=== PATIENT | female | born 1965 | race Two or more races ===

== ENCOUNTER → 2016-11-09 | Outpatient (CLI) | payer OTHER ==
[2015-10-17 11:55] VITALS: BP 138/84
[~2016-11-09] MED LIST: CALC500T27 PO; CHOL500015 PO; IBUP200T43 PO; TRAM50TA PO
[2016-11-09 07:32] LABS: BASO % 1 % (0-3); EOS % 5 % (0-3); HEMATOCRIT 42.5 % (36.0-47.0); HEMOGLOBIN 14.6 g/dL (12.0-15.5); LYMPH # 1.6 x10^3/uL (1.0-4.8); LYMPH % 21 % (24-48); MEAN CORPUSCULAR HEMOGLOBIN 30 pg (25-35); MEAN CORPUSCULAR HGB CONC 34 g/dL (31-37); MEAN CORPUSCULAR VOLUME 89 fL (79-100); MONO % 8 % (0-9); NEUT % 65 % (31-73); PLATELET COUNT 295 x10^3/uL (140-400); RED CELL DISTRIBUTION WIDTH 12.5 % (11.5-14.5); WHITE BLOOD COUNT 7.8 x10^3/uL (4.0-11.0)
[2016-11-09 07:35] LABS: BILIRUBIN,URINE NEGATIVE (NEG); GLUCOSE,URINE NEGATIVE (NEG); NITRITE,URINE NEGATIVE (NEG); PH,URINE 5.5; PROTEIN,URINE NEGATIVE (NEG-TRACE); UROBILINOGEN,URINE 0.2 mg/dL (0.2 mg/dL)
[2016-11-09 07:51] LABS: ALBUMIN 3.5 g/dL (3.4-5.0); ALBUMIN/GLOBULIN RATIO 0.9 (1.0-1.7); CREATININE 0.6 mg/dL (0.6-1.0); GFR 106.3; POTASSIUM 4.2 mmol/L (3.5-5.1); TOTAL BILIRUBIN 0.3 mg/dL (0.2-1.0); TOTAL PROTEIN 7.5 g/dL (6.4-8.2)
[2016-11-09 07:52] LABS: CHOLESTEROL/HDL RATIO 3.3
[2016-11-09 07:58] LABS: BACTERIA,URINE MANY /HPF (0-FEW); RBC,URINE 0 /HPF (0-2); SQUAMOUS EPITHELIAL CELL,UR MANY /LPF
== END | disposition home or self-care (01) ==
LOC: LAB 07:15
PROVIDERS: ATTEND Internal Medicine
DX: Z00.00 Encounter for general adult medical examination without abnormal findings (principal)
CPT/HCPCS: 36415; 80053; 80061; 81001; 83036; 84443; 85027; 87086

== ENCOUNTER → 2017-10-12 | Outpatient (CLI) | payer OTHER ==
[2017-10-12 07:31] LABS: ADD MAN DIFF? NO
[2017-10-12 07:41] LABS: BASO % 1 % (0-3); EOS # 0.3 x10^3/uL (0.0-0.7); EOS % 5 % (0-3); HEMATOCRIT 41.4 % (36.0-47.0); HEMOGLOBIN 14.1 g/dL (12.0-15.5); LYMPH # 1.6 x10^3/uL (1.0-4.8); LYMPH % 24 % (24-48); MEAN CORPUSCULAR HEMOGLOBIN 30 pg (25-35); MEAN CORPUSCULAR HGB CONC 34 g/dL (31-37); MEAN CORPUSCULAR VOLUME 87 fL (79-100); MONO # 0.4 x10^3/uL (0.0-1.1); MONO % 7 % (0-9); NEUT # 4.1 x10^3uL (1.8-7.7); NEUT % 64 % (31-73); PLATELET COUNT 331 x10^3/uL (140-400); RED BLOOD COUNT 4.76 x10^6/uL (3.50-5.40); RED CELL DISTRIBUTION WIDTH 12.5 % (11.5-14.5); WHITE BLOOD COUNT 6.5 x10^3/uL (4.0-11.0)
[2017-10-12 08:05] LABS: ALBUMIN 3.4 g/dL (3.4-5.0); ALBUMIN/GLOBULIN RATIO 0.9 (1.0-1.7); ALK PHOS 79 U/L (46-116); ALT (SGPT) 30 U/L (14-59); ANION GAP 8 (6-14); AST (SGOT) 20 U/L (15-37); BLOOD UREA NITROGEN 11 mg/dL (7-20); BUN/CREATININE RATIO 22 (6-20); CALCIUM 9.2 mg/dL (8.5-10.1); CARBON DIOXIDE 26 mmol/L (21-32); CHLORIDE 106 mmol/L (98-107); CHOLESTEROL 204 mg/dL (0-200); CREATININE 0.5 mg/dL (0.6-1.0); GFR 130.6; GLUCOSE 92 mg/dL (70-99); HDLC 78 mg/dL (40-60); LDLC 103 mg/dL (0-100); NON-HDL CHOLESTEROL 126 mg/dL (0-129); SODIUM 140 mmol/L (136-145); TOTAL BILIRUBIN 0.3 mg/dL (0.2-1.0); TOTAL PROTEIN 7.4 g/dL (6.4-8.2); TRIGLYCERIDES 113 mg/dL (0-150); VLDLC 23 mg/dL (0-40)
[2017-10-12 08:06] LABS: CHOLESTEROL/HDL RATIO 2.6
[2017-10-12 08:14] LABS: THYROID STIM HORMONE (TSH) 1.469 uIU/mL (0.358-3.74)
[2017-10-12 10:51] LABS: BILIRUBIN,URINE NEGATIVE (NEG); CLARITY,URINE CLOUDY; COLOR,URINE YELLOW; GLUCOSE,URINE NEGATIVE (NEG); NITRITE,URINE NEGATIVE (NEG); PH,URINE 7.5; PROTEIN,URINE NEGATIVE (NEG-TRACE); UROBILINOGEN,URINE 0.2 mg/dL (0.2 mg/dL)
[2017-10-12 11:06] LABS: AMORPHOUS SEDIMENT,UR PRESENT /HPF; BACTERIA,URINE FEW /HPF (0-FEW); RBC,URINE 0 /HPF (0-2); SQUAMOUS EPITHELIAL CELL,UR MOD /LPF; WBC,URINE 0 /HPF (0-4)
== END | disposition home or self-care (01) ==
LOC: LAB 07:12
DX: Z00.01 Encounter for general adult medical examination with abnormal findings (principal); E55.9 Vitamin D deficiency, unspecified; R79.89 Other specified abnormal findings of blood chemistry
CPT/HCPCS: 36415; 80053; 80061; 81001; 82306; 83036; 84443; 85025

== ENCOUNTER → 2018-03-15 | Outpatient (CLI) | payer OTHER ==
[2018-03-15] MEDS: IOHEXOL 300 MG/ML 100ML VIAL. IV (07:45)
== END | disposition home or self-care (01) ==
LOC: CT 10:19
DX: K76.89 Other specified diseases of liver (principal); J98.11 Atelectasis; E55.9 Vitamin D deficiency, unspecified; K21.0 Gastro-esophageal reflux disease with esophagitis; Z90.721 Acquired absence of ovaries, unilateral; Z90.710 Acquired absence of both cervix and uterus; Z83.3 Family history of diabetes mellitus; Z88.8 Allergy status to other drugs, medicaments and biological substances
CPT/HCPCS: 74160; Q9967

== ENCOUNTER → 2018-06-26 | Outpatient (CLI) | payer OTHER ==
[2017-11-18 15:00] VITALS: BP 142/83
[~2018-06-26] MED LIST changes: -CALC500T27 PO; +CALC500T30 PO; -CHOL500015 PO; +CHOL500045 PO; +HYDR-2761 PO; -IBUP200T43 PO; +IBUP200T44 PO; +NAPR-683 PO; +TIZA4CAP3 PO
--- NOTE | 2018-08-29 15:38 | RAD ---
DATE: 06/26/2018 EXAM: MAMMO SUSY SCREENING BILATERAL HISTORY: Routine screening COMPARISON: 06/04/2017 This study was interpreted with the benefit of Computerized Aided Detection (CAD). Breast Density: HETERO The breast parenchyma is heterogenously dense, which could reduce sensitivity of mammography. Breast parenchyma level C. FINDINGS: 2-D and 3-D tomosynthesis imaging was performed in CC and MLO projections. A new smooth 17 mm nodule is now identified anteromedially in the left breast at approximately the 9:00 location. It is clearly visualized on left CC tomogram image 28. Slightly more superiorly in the medial left breast there is a 5 mm nodule as best seen on left CC tomosynthesis images #43. This has been present on previous multiple previous studies and is stable to decreased in size suggesting a benign etiology. There is also a tiny 3-4 mm nodule in the posterior aspect of the left breast at the 6:00 location as seen on left CC tomosynthesis is image #11. This has been intermittently visualized on previous mammograms. Fibroglandular opacities in the right breast are unchanged without evidence of a mass. Several benign type calcifications are again noted bilaterally. No suspicious microcalcifications are evident. IMPRESSION: 1. New medial left breast nodule as described above. 2. Two additional smaller left breast nodules were probably present on previous studies, however, they are better demonstrated on today's tomosynthesis imaging. 3. Left breast ultrasound is suggested for further evaluation. BI-RADS CATEGORY: 0 INCOMPLETE: NEEDS ADDITIONAL IMAGING EVALUATION AND/OR PRIOR MAMMOGRAMS FOR COMPARISON. RECOMMENDED FOLLOW-UP: ADD ADDITIONAL IMAGING PQRS compliance statement: Patient information was entered into a reminder system with a target due date for the next mammogram. Mammography is a sensitive method for finding small breast cancers, but it does not detect them all and is not a substitute for careful clinical examination. A negative mammogram does not negate a clinically suspicious finding and should not result in delay in biopsying a clinically suspicious abnormality. "Our facility is accredited by the [employer] Mammography Program."
== END | disposition home or self-care (01) ==
LOC: MAMMO 09:57
PROVIDERS: ATTEND Internal Medicine
DX: Z12.31 Encounter for screening mammogram for malignant neoplasm of breast (principal); N63.24 Unspecified lump in the left breast, lower inner quadrant
CPT/HCPCS: 77063; 77067

== ENCOUNTER → 2018-07-05 | Outpatient (CLI) | payer OTHER ==
[2017-11-18 15:00] VITALS: BP 142/83
--- NOTE | 2018-07-05 13:24 | RAD ---
Left breast ultrasound, 07/05/2018: History: Abnormal mammograms A targeted ultrasound exam of left breast was performed. At the 9:00 location approximately 3 cm from the nipple there is a 15 mm rounded nodule. This is a solid nodule with internal color flow. Its margins are slightly lobulated. There is mild posterior acoustic enhancement. This corresponds in location to the dominant nodule seen on the mammograms. While this may be a fibroadenoma, a circumscribed malignancy cannot be excluded. At the 10:00 location approximately 5 cm from the nipple a 5 x 3 x 4 mm hypoechoic nodule is seen. Its margins are slightly irregular. There are internal echoes. There is possible internal color flow. This appears to correspond to another nodule seen on the mammograms. Targeted examination of the 6:00 location does not demonstrate a definite nodule or fluid collection. We therefore could not identify a sonographic correlate for the smooth nodule seen on the mammograms at this level. IMPRESSION: 1. Solid left nodule at the 9:00 location as described above. Ultrasound-guided biopsy is suggested for further evaluation. 2. Small nonspecific hypoechoic left nodule at the 10:00 location. Ultrasound-guided biopsy of this lesion is also suggested. 3. No sonographic correlate could be identified for the small smooth left nodule at 6:00 identified on the prior mammograms. Mammographic surveillance of this nodule is suggested. Note: The findings were discussed with the patient at the time of the exam and she understands the recommendation for biopsy. She will follow-up with the ordering provider. BI-RADS 5-suspicious abnormality
== END | disposition home or self-care (01) ==
LOC: US 12:27
PROVIDERS: ATTEND Internal Medicine
DX: N63.22 Unspecified lump in the left breast, upper inner quadrant (principal)
CPT/HCPCS: 76641

== ENCOUNTER → 2018-08-16 | Outpatient (CLI) | payer OTHER ==
[2017-11-18 15:00] VITALS: BP 142/83
[~2018-08-16] MED LIST changes: +LIDOCAINE 2%/EPI 1:100,000 20 ML VIAL. IJ ONE
--- NOTE | 2018-08-20 17:09 | PATHOLOGY ---
[facility] Accession Number: [id number] . 01 Material submitted: . PART A: LEFT BREAST MASS 10:00 PART B: LEFT BREAST MASS 9:00 . 01 Clinical history: . Left breast mass 10:00 and 9:00 . 02 Diagnosis: A. Breast tissue, left breast mass 10:00 needle biopsy: - Fibroadenoma. . B. Breast tissue, left breast mass 9:00 needle biopsy: - Fibroadenoma. . (JPM:dora; 08/20/2018) MBR/08/20/2018 . 02 Comment: There is no evidence of malignancy. (JPM:dora; 08/20/2018) . 02 Electronically signed: . Patrick Bal MD, Pathologist NPI- [id number] . 01 Gross description: . A. Received in formalin labeled "Sloane Odell, left breast 10:00," are multiple needle cores of yellow-hicks fibrofatty tissue measuring 2.7 x 1.8 x 0.2 cm in aggregate dimensions. The tissue is submitted in its entirety in cassette A1 through A3. The cold ischemic time is 5 minutes. The total formalin fixation time is 76 hours and 45 minutes. . B. Received in formalin labeled "Sloane Odell, left breast 9:00," are multiple needle cores of yellow-hicks fibrofatty tissue measuring 0.9 x 1.2 x 0.2 cm in aggregate dimensions. The tissue submitted in its entirety in cassette B1 through B3. The cold ischemic time is 5 minutes. The total formalin fixation time is 76 hours and 35 minutes. (TSD; 08/19/2018) TOB/TOB . 02 Pathologist provided ICD-10: D24.2 . 02 CPT . 943580, [id number] Specimen Comment: A courtesy copy of this report has been sent to Specimen Comment: [phone], . Specimen Comment: Report sent to and Specimen Comment: A duplicate report has been generated due to demographic updates. Performed at: 01 [facility] [address], [place] [id number] MD Yaw Ramey MD Phone: [phone] Performed at: 02 [facility] [address] [place], [place] [id number] MD Patrick Bal MD Phone: [phone]
--- NOTE | 2018-08-21 08:18 | RAD ---
Ultrasound-guided left breast biopsy #1, 08/16/2018: History: Suspicious breast nodules Previous imaging demonstrated a small suspicious nodule at the 10:00 location in the left breast. Under local anesthesia, aseptic conditions and sonographic guidance the Eligible biopsy instrument was passed into the posterior aspect of this nodule via a medial approach. Multiple 12-gauge vacuum-assisted core samples were obtained and sent to pathology for evaluation. A T-shaped biopsy marker was then deposited at the biopsy site. The biopsy instrument was removed and hemostasis obtained. Ultrasound-guided left breast biopsy #2, 08/16/2018: We then targeted the larger suspicious nodule located at the 9:00 location. Under local anesthesia, aseptic conditions and sonographic guidance 3 separate 14-gauge core samples were obtained from this nodule via a medial approach. An S shaped biopsy marker was then placed within the biopsied lesion. Hemostasis was then obtained. 2 view postprocedural digital mammograms were then performed to document the positions of the biopsy markers. The patient tolerated the procedure well and left the department in good condition. Note: The subsequent pathology report indicated that both of these biopsies demonstrated fibroadenomas. These are concordant findings. It should also be noted that the previous mammograms demonstrated an additional small left breast nodule for which there was no sonographic correlate and mammographic surveillance (6 month follow-up) was suggested. BI-RADS 3-probably benign findings
== END | disposition home or self-care (01) ==
LOC: US 15:02
PROVIDERS: ATTEND Internal Medicine
DX: D24.2 Benign neoplasm of left breast (principal); Z88.8 Allergy status to other drugs, medicaments and biological substances; Z88.6 Allergy status to analgesic agent; Z91.011 Allergy to milk products
CPT/HCPCS: 19083; 19084; 77065; 88305; C1713; 19081; 76942

== ENCOUNTER 2018-09-18 20:24 | Emergency (ER) | payer OTHER ==
[~2018-09-18] VITALS: Ht 162.6 cm; Wt 86.2 kg
[~2018-09-18 20:24] MED LIST changes: -LIDOCAINE 2%/EPI 1:100,000 20 ML VIAL. IJ ONE
[2018-09-18 21:16] LABS: INFLUENZA A PATIENT NEGATIVE (NEGATIVE); INFLUENZA B PATIENT NEGATIVE (NEGATIVE)
[2018-09-18] MEDS ORDERED: IBUPROFEN 100 MG/5 ML ORAL.SUSP. PO ONE (22:00)
[2018-09-18] MEDS ORDERED: ALBUTEROL SULFATE 2.5 MG/3 ML NEBU. NEB ONE (22:00)
--- NOTE | 2018-09-18 22:26 | PHYS DOC ---
Past Medical History Past Medical History: No Pertinent History Past Surgical History: Hysterectomy Alcohol Use: None Drug Use: None Adult General Chief Complaint Chief Complaint: FLU SYMPTOM HPI HPI Patient is a 53 year old female who presents to the ER with complaints of a fever, throbbing headache, dry cough, chills, nasal congestion, chest congestion , and substernal pain with coughing since yesterday morning. patient currently he rates her discomfort as 10 on the pain scale. There are no alleviating factors. Patient states that coughing increases her symptoms. She denies any shortness of breath, wheezing, nausea, vomiting, diarrhea, or abdominal pain. patient reports she is unable to take oral medications because she does not tolerate them. Review of Systems Review of Systems Constitutional: reports fever, chills, fatigue Eyes: Denies change in visual acuity, redness, or eye pain [] HENT: see HPI Respiratory: Denies wheezing or shortness of breath; see HPI Cardiovascular: No additional information not addressed in HPI [] GI: Denies abdominal pain, nausea, vomiting, or diarrhea [] Musculoskeletal: reports body aches Integument: Denies rash or skin lesions [] Neurologic: Denies focal weakness or sensory changes [] Endocrine: Denies polyuria or polydipsia [] All other systems were reviewed and found to be within normal limits, except as documented in this note. Current Medications Current Medications Current Medications Medications (Trade) Dose Ordered Sig/Lo Start Time Stop Time Status Last Admin Dose Admin Albuterol Sulfate (Ventolin Neb Soln) 2.5 mg 1X ONCE 09/18/18 22:00 09/18/18 22:01 DC 09/18/18 21:51 2.5 MG Dexamethasone Sodium Phosphate (Decadron) 10 mg 1X ONCE 09/18/18 23:00 09/18/18 23:01 DC 09/18/18 23:15 10 MG Ibuprofen (Children'S Motrin) 800 mg 1X ONCE 09/18/18 22:00 09/18/18 22:01 DC 09/18/18 22:00 800 MG Allergies Allergies Allergies Coded Allergies Type Severity Reaction Last Updated Verified Milk Containing Products Allergy Severe Swelling 11/15/17 Yes milk Allergy Severe Swelling 11/15/17 Yes acetaminophen Adverse Reaction Mild upset stomache 11/15/17 Yes ibuprofen Adverse Reaction Mild upset stomache 11/15/17 Yes Physical Exam Physical Exam Constitutional: Well developed, well nourished, no acute distress, non-toxic appearance. [] HENT: Normocephalic, atraumatic, bilateral external ears normal, bilateral TMs normal, oropharynx moist, no oral exudates, nose normal. [] Eyes: Conjunctiva normal, no discharge. [] Neck: Normal range of motion, no tenderness, supple, no stridor. [] Cardiovascular:Heart rate regular rhythm, no murmur [] Lungs & Thorax: Bilateral breath sounds clear to auscultation, diminished in bases bilaterally [] Skin: Warm, dry, no erythema, no rash. [] Extremities: No cyanosis, no clubbing, ROM intact, no edema. [] Neurologic: Alert and oriented X 3, normal motor function, normal sensory function, no focal deficits noted. [] Psychologic: Affect normal, judgement normal, mood normal. [] Current Patient Data Vital Signs Vital Signs Date Time Temp Pulse Resp B/P (MAP) Pulse Ox O2 Delivery O2 Flow Rate FiO2 09/18/18 23:23 109 20 102/53 (69) 98 Room Air 09/18/18 20:26 101.5 101.5 Lab Values Laboratory Tests Test 09/18/18 20:40 Influenza Type A Antigen Negative (NEGATIVE) Influenza Type B Antigen Negative (NEGATIVE) EKG EKG [] Radiology/Procedures Radiology/Procedures PROCEDURE: CHEST PA & LATERAL PA and lateral chest radiographs 09/18/2018 CLINICAL HISTORY: Cough. PA and lateral digital radiographs of chest were obtained. No previous studies are available for comparison. The cardiac and mediastinal silhouettes are within normal limits in size and configuration. No acute pulmonary infiltrate is seen. No pleural effusion or pneumothorax is noted. Surgical clips are seen within the right upper quadrant abdomen consistent with a cholecystectomy. Degenerative changes are seen involving the thoracic spine. IMPRESSION: No acute abnormality is seen. [] patient also received a nebulizer treatment of albuterol, lungs are clear in all youssef after the treatment. influenza testing is negative Course & Med Decision Making Course & Med Decision Making Pertinent Labs and Imaging studies reviewed. (See chart for details) dx: URI with cough and congestion, fever chest x-ray was negative for any acute findings. Patient was given a breathing treatment reported relief after treatment. 800 mg of liquid ibuprofen was given in the emergency department, pt tolerated well. Patient was also given 10 mg of PO Decadron. prescription was written for Tessalon Perrls and URI Instructions Were Given. Pt verbalized an understanding of discharge, medications, follow-up, home care, and return to ED precautions, was in agreement with POC. [] Dragon Disclaimer Dragon Disclaimer This electronic medical record was generated, in whole or in part, using a voice recognition dictation system. Departure Departure Impression: Primary Impression: Upper respiratory infection with cough and congestion Additional Impression: Fever Disposition: 01 HOME, SELF-CARE Condition: STABLE Referrals: GIRMA MOLINA MD (PCP) Patient Instructions: Fever, Adult, Elzx-[id number], Upper Respiratory Infection, Adult, [id number]-[id number] Additional Instructions: Fill prescription(s) and use as directed. Recommend use of a Cool mist humidifier in room at bedtime. Alternate Tylenol or ibuprofen as needed for pain /fever. Increase clear fluids. Avoid airway triggers such as smoke, fragrance, dust, and pollen. May take [id number] cough suppressants as needed. Follow -up with your primary care doctor symptoms persist, return to the ER symptoms worsen. Scripts Benzonatate (TESSALON PERLE) 100 Mg Capsule 1 CAP PO TID PRN for COUGH, #21 CAP 0 Refills Prov: KEENA YOO SECURITY SYSTEM ANALYST 09/18/18 Problem Qualifiers Additional Impression: Fever Fever type: unspecified Qualified Codes: R50.9 - Fever, unspecified KEENA YOO SECURITY SYSTEM ANALYST Sep 18, 2018 22:26
--- NOTE | 2018-09-18 22:36 | RAD ---
PA and lateral chest radiographs 09/18/2018 CLINICAL HISTORY: Cough. PA and lateral digital radiographs of chest were obtained. No previous studies are available for comparison. The cardiac and mediastinal silhouettes are within normal limits in size and configuration. No acute pulmonary infiltrate is seen. No pleural effusion or pneumothorax is noted. Surgical clips are seen within the right upper quadrant abdomen consistent with a cholecystectomy. Degenerative changes are seen involving the thoracic spine. IMPRESSION: No acute abnormality is seen. Electronically signed by: Edward Lin MD (09/18/2018 10:33 PM) [facility]
[2018-09-18] MEDS ORDERED: DEXAMETHASONE SOD PHOS 20 MG/5 ML VIAL. PO ONE (23:00)
[2018-09-18] MEDS ORDERED: BENZ100C PO (23:01)
[2018-09-18 23:23] VITALS: BP 102/53
== END 2018-09-18 23:21 | disposition home or self-care (01) ==
LOC: ER 20:24
DX: J06.9 Acute upper respiratory infection, unspecified (principal); R07.2 Precordial pain; Z88.8 Allergy status to other drugs, medicaments and biological substances; Z88.6 Allergy status to analgesic agent; Z91.011 Allergy to milk products
CPT/HCPCS: 71046; 87804; 94640; 99284; J1100; J7613

== ENCOUNTER → 2018-12-06 | Outpatient (CLI) | payer OTHER ==
[~2018-12-06] MED LIST changes: +BENZ100C PO
[2018-12-06 08:17] LABS: BASO % 0 % (0-3); EOS # 0.3 x10^3/uL (0.0-0.7); EOS % 6 % (0-3); HEMATOCRIT 41.9 % (36.0-47.0); HEMOGLOBIN 14.3 g/dL (12.0-15.5); LYMPH # 1.4 x10^3/uL (1.0-4.8); LYMPH % 25 % (24-48); MEAN CORPUSCULAR HEMOGLOBIN 30 pg (25-35); MEAN CORPUSCULAR HGB CONC 34 g/dL (31-37); MEAN CORPUSCULAR VOLUME 88 fL (79-100); MONO # 0.4 x10^3/uL (0.0-1.1); MONO % 7 % (0-9); NEUT # 3.6 x10^3uL (1.8-7.7); NEUT % 62 % (31-73); PLATELET COUNT 299 x10^3/uL (140-400); RED BLOOD COUNT 4.78 x10^6/uL (3.50-5.40); RED CELL DISTRIBUTION WIDTH 12.7 % (11.5-14.5); WHITE BLOOD COUNT 5.8 x10^3/uL (4.0-11.0)
[2018-12-06 08:33] LABS: ALBUMIN 3.8 g/dL (3.4-5.0); ALBUMIN/GLOBULIN RATIO 0.9 (1.0-1.7); CALCIUM 9.3 mg/dL (8.5-10.1); CHOLESTEROL/HDL RATIO 3.1; CREATININE 0.6 mg/dL (0.6-1.0); GFR 105.4; POTASSIUM 4.1 mmol/L (3.5-5.1); TOTAL BILIRUBIN 0.4 mg/dL (0.2-1.0); TOTAL PROTEIN 7.9 g/dL (6.4-8.2)
[2018-12-06 10:53] LABS: BILIRUBIN,URINE NEGATIVE (NEG); CLARITY,URINE CLEAR; COLOR,URINE YELLOW; NITRITE,URINE NEGATIVE (NEG); PROTEIN,URINE NEGATIVE (NEG-TRACE); UROBILINOGEN,URINE 0.2 mg/dL (0.2 mg/dL)
[2018-12-06 11:07] LABS: BACTERIA,URINE 0 /HPF (0-FEW); RBC,URINE OCC /HPF (0-2); SQUAMOUS EPITHELIAL CELL,UR FEW /LPF; WBC,URINE 0 /HPF (0-4)
[2018-12-06 22:08] LABS: HEMOGLOBIN A1C 5.6 % (4.8-5.6)
== END | disposition home or self-care (01) ==
LOC: LAB 07:40
PROVIDERS: ATTEND Internal Medicine
DX: Z00.00 Encounter for general adult medical examination without abnormal findings (principal); E55.9 Vitamin D deficiency, unspecified
CPT/HCPCS: 36415; 80053; 80061; 81001; 82306; 83036; 84443; 85025

== ENCOUNTER 2019-01-21 09:53 | Emergency (ER) | payer OTHER ==
[~2019-01-21] VITALS: Ht 162.6 cm; Wt 86.2 kg
[2019-01-21 11:40] VITALS: BP 131/75
[2019-01-21] MEDS ORDERED: IBUPROFEN 400 MG TABLET. PO ONE (12:15)
--- NOTE | 2019-01-21 12:49 | RAD ---
Left foot, 3 views, 01/21/2019: HISTORY: Injury No acute fracture or dislocation is identified. There is mild subcutaneous edema. IMPRESSION: No acute bony abnormality is detected. Left ankle, 3 views, 01/21/2019: No fracture or dislocation is identified. There is mild diffuse soft tissue swelling. IMPRESSION: No acute bony abnormality is detected. Electronically signed by: Germain Meneses MD (01/21/2019 12:46 PM) [facility]
--- NOTE | 2019-01-21 12:49 | RAD ---
Left foot, 3 views, 01/21/2019: HISTORY: Injury No acute fracture or dislocation is identified. There is mild subcutaneous edema. IMPRESSION: No acute bony abnormality is detected. Left ankle, 3 views, 01/21/2019: No fracture or dislocation is identified. There is mild diffuse soft tissue swelling. IMPRESSION: No acute bony abnormality is detected. Electronically signed by: Germain Meneses MD (01/21/2019 12:46 PM) [facility]
--- NOTE | 2019-01-21 13:10 | PHYS DOC ---
Past Medical History Past Medical History: No Pertinent History Past Surgical History: Cholecystectomy, Hysterectomy Alcohol Use: None Drug Use: None Adult General Chief Complaint Chief Complaint: ANKLE PROBLEM HPI HPI Patient is a 53 year old [f__sex] who presents with [] Review of Systems Review of Systems Constitutional: Denies fever or chills [] Eyes: Denies change in visual acuity, redness, or eye pain [] HENT: Denies nasal congestion or sore throat [] Respiratory: Denies cough or shortness of breath [] Cardiovascular: No additional information not addressed in HPI [] GI: Denies abdominal pain, nausea, vomiting, bloody stools or diarrhea [] : Denies dysuria or hematuria [] Musculoskeletal: Denies back pain or joint pain [] Integument: Denies rash or skin lesions [] Neurologic: Denies headache, focal weakness or sensory changes [] Endocrine: Denies polyuria or polydipsia [] All other systems were reviewed and found to be within normal limits, except as documented in this note. Current Medications Current Medications Current Medications Medications (Trade) Dose Ordered Sig/Lo Start Time Stop Time Status Last Admin Dose Admin Ibuprofen (Motrin) 400 mg 1X ONCE 01/21/19 12:15 01/21/19 12:16 DC 01/21/19 12:35 400 MG Allergies Allergies Allergies Coded Allergies Type Severity Reaction Last Updated Verified Milk Containing Products Allergy Severe Swelling 11/15/17 Yes milk Allergy Severe Swelling 11/15/17 Yes acetaminophen Adverse Reaction Mild upset stomache 11/15/17 Yes ibuprofen Adverse Reaction Mild upset stomache 11/15/17 Yes Physical Exam Physical Exam Constitutional: Well developed, well nourished, no acute distress, non-toxic appearance. [] HENT: Normocephalic, atraumatic, bilateral external ears normal, oropharynx moist, no oral exudates, nose normal. [] Eyes: PERRLA, EOMI, conjunctiva normal, no discharge. [] Neck: Normal range of motion, no tenderness, supple, no stridor. [] Cardiovascular:Heart rate regular rhythm, no murmur [] Lungs & Thorax: Bilateral breath sounds clear to auscultation [] Abdomen: Bowel sounds normal, soft, no tenderness, no masses, no pulsatile masses. [] Skin: Warm, dry, no erythema, no rash. [] Back: No tenderness, no CVA tenderness. [] Extremities: No tenderness, no cyanosis, no clubbing, ROM intact, no edema. [] Neurologic: Alert and oriented X 3, normal motor function, normal sensory function, no focal deficits noted. [] Psychologic: Affect normal, judgement normal, mood normal. [] Current Patient Data Vital Signs Vital Signs Date Time Temp Pulse Resp B/P (MAP) Pulse Ox O2 Delivery O2 Flow Rate FiO2 01/21/19 11:40 98.4 80 16 131/75 (93) 97 Room Air 98.4 EKG EKG [] Radiology/Procedures Radiology/Procedures PROCEDURE: FOOT LEFT 3V Left foot, 3 views, 01/21/2019: HISTORY: Injury No acute fracture or dislocation is identified. There is mild subcutaneous edema. IMPRESSION: No acute bony abnormality is detected. Left ankle, 3 views, 01/21/2019: No fracture or dislocation is identified. There is mild diffuse soft tissue swelling. IMPRESSION: No acute bony abnormality is detected. Electronically signed by: Germain Peck MD (01/21/2019 12:46 PM) [facility] DICTATED and SIGNED BY: GERMAIN PECK MD DATE: 01/21/19 1246 Course & Med Decision Making Course & Med Decision Making Pertinent Labs and Imaging studies reviewed. (See chart for details) [] Dragon Disclaimer Dragon Disclaimer This electronic medical record was generated, in whole or in part, using a voice recognition dictation system. Departure Departure Impression: Primary Impression: Left ankle injury Additional Impression: Injury of foot, left Disposition: 01 HOME, SELF-CARE Condition: STABLE Referrals: GIRMA MOLINA MD (PCP) SKIP COOMBS MD Patient Instructions: Ankle Pain, Crutch Use, Elastic Bandage and RICE, Foot Contusion Additional Instructions: Tylenol and/or ibuprofen as needed for pain as directed on container. Ice pack to affected area every 3-4 hours for 20-30 minutes at a time. Follow-up with your primary care physician and or an orthopedic doctor for r eevaluation and further care. Problem Qualifiers [place] Oliver Liseth DE LUNA Jan 21, 2019 13:10
== END 2019-01-21 13:58 | disposition home or self-care (01) ==
LOC: ER 09:53
DX: S99.912A Unspecified injury of left ankle, initial encounter (principal); S99.922A Unspecified injury of left foot, initial encounter; Z88.6 Allergy status to analgesic agent; Z91.011 Allergy to milk products; Z88.8 Allergy status to other drugs, medicaments and biological substances; W18.49XA Other slipping, tripping and stumbling without falling, initial encounter; Y93.01 Activity, walking, marching and hiking; Y92.89 Other specified places as the place of occurrence of the external cause; Y99.8 Other external cause status
CPT/HCPCS: 29515; 73610; 73630; 99284-25

== ENCOUNTER → 2019-04-18 | Outpatient (CLI) | payer OTHER ==
[2019-04-18 08:10] LABS: ALBUMIN 3.8 g/dL (3.4-5.0); CALCIUM 9.3 mg/dL (8.5-10.1); CREATININE 0.7 mg/dL (0.6-1.0); GFR 88.2; TOTAL BILIRUBIN 0.4 mg/dL (0.2-1.0); TOTAL PROTEIN 7.7 g/dL (6.4-8.2)
[2019-04-18 08:15] LABS: CHOLESTEROL/HDL RATIO 3.6
== END | disposition home or self-care (01) ==
LOC: LAB 07:24
PROVIDERS: ATTEND Internal Medicine
DX: E78.5 Hyperlipidemia, unspecified (principal)
CPT/HCPCS: 36415; 80053; 80061

== ENCOUNTER → 2019-06-03 | Outpatient (CLI) | payer OTHER ==
[2019-06-03 12:23] LABS: BASO % 1 % (0-3); EOS # 0.4 x10^3/uL (0.0-0.7); EOS % 6 % (0-3); HEMATOCRIT 40.8 % (36.0-47.0); LYMPH # 1.6 x10^3/uL (1.0-4.8); LYMPH % 23 % (24-48); MEAN CORPUSCULAR HEMOGLOBIN 30 pg (25-35); MEAN CORPUSCULAR HGB CONC 34 g/dL (31-37); MEAN CORPUSCULAR VOLUME 87 fL (79-100); MONO # 0.5 x10^3/uL (0.0-1.1); MONO % 7 % (0-9); NEUT # 4.3 x10^3/uL (1.8-7.7); NEUT % 63 % (31-73); PLATELET COUNT 325 x10^3/uL (140-400); RED BLOOD COUNT 4.68 x10^6/uL (3.50-5.40); RED CELL DISTRIBUTION WIDTH 12.4 % (11.5-14.5); WHITE BLOOD COUNT 6.8 x10^3/uL (4.0-11.0)
[2019-06-03 12:36] LABS: ALBUMIN 3.8 g/dL (3.4-5.0); ALBUMIN/GLOBULIN RATIO 0.9 (1.0-1.7); BARBITURATES NEG (NEG); BENZODIAZEPINES NEG (NEG); CALCIUM 9.4 mg/dL (8.5-10.1); CANNABINOIDS NEG (NEG); COCAINE NEG (NEG); CREATININE 0.7 mg/dL (0.6-1.0); GFR 88.2; METHADONE NEG (NEG); OPIATES NEG (NEG); PHENCYCLIDINE NEG (NEG); POTASSIUM 4.2 mmol/L (3.5-5.1); TOTAL BILIRUBIN 0.2 mg/dL (0.2-1.0); TOTAL PROTEIN 7.9 g/dL (6.4-8.2)
[2019-06-03 12:44] LABS: AMPHETAMINE/METHAMPHETAMINE NEG (NEG)
== END | disposition home or self-care (01) ==
LOC: LAB 12:07
PROVIDERS: ATTEND Psychiatry & Neurology Neurology
DX: R51 Headache (principal)
CPT/HCPCS: 36415; 80053; 80307; 82607; 84443; 85025; 85651

== ENCOUNTER → 2019-06-20 | Outpatient (CLI) | payer OTHER ==
[~2019-06-20] MED LIST changes: +GADOTERATE 7.5 MMOL/15ML VIAL. IVP ONE
--- NOTE | 2019-06-20 10:22 | KCIC ---
MRI Brain with and without contrast History: Occipital headaches, electrical shock in the back of the head Technique: Multiplanar, multi sequential pre and postcontrast MR imaging was performed of the brain. Comparison: None Findings: There is no evidence of recent infarct or cytotoxic edema. The ventricles, sulci, and cisterns are within normal limits in size and configuration. There is no significant midline shift, intraaxial mass effect, or focal abnormal extra-axial fluid collection. There is no significant signal abnormality of the brain parenchyma. There is no nodular parenchymal or leptomeningeal enhancement. There is preservation of the major intracranial flow-voids at the skull base. The cerebellar tonsils are normal in location. There is no significant abnormality of the pineal gland or pituitary gland. There is lpor-aj-spphjjkz ethmoid air cell mucosal thickening greater on the left. There is very mild right sphenoid sinus and bilateral frontal sinus mucosal thickening. The mastoid air cells are aerated. There is preserved marrow signal of the clivus. Impression: 1. There is no significant intracranial abnormality. 2. There is paranasal sinus mucosal thickening as stated. Electronically signed by: Noel Escobedo MD (06/20/2019 10:19 AM) [id number]
== END | disposition home or self-care (01) ==
LOC: KCIC MRI 08:22
PROVIDERS: ATTEND Psychiatry & Neurology Neurology
DX: R51 Headache (principal); J34.89 Other specified disorders of nose and nasal sinuses
CPT/HCPCS: 70553; A9575

== ENCOUNTER → 2019-06-27 | Outpatient (CLI) | payer OTHER ==
[~2019-06-27] MED LIST changes: -GADOTERATE 7.5 MMOL/15ML VIAL. IVP ONE
--- NOTE | 2019-07-09 19:04 | EEG ---
DATE OF SERVICE: 06/27/2019 EEG NUMBER: [id number]. OBJECTIVE: This is a 53-year-old female patient with history of abnormal feelings. EEG was requested to help rule out complex partial seizure. METHODS: Twenty electrodes were applied according to the international 10-20 electrode placement system. EKG monitoring, hyperventilation, intermittent photic stimulation, monopolar and bipolar montages are routinely utilized. The record was obtained on a digital system with video monitoring. FINDINGS: 1. Background: The patient was recorded in the awake and drowsy states. No actual sleep state was recorded. The overall background amplitude is 10-30 microvolts. A posterior dominant rhythm of 8-9 Hz is observed. 2. Abnormalities: No specific epileptiform discharge or electrographic seizure is seen. No focal or diffuse slowing. 3. Activation: Hyperventilation was performed with good efforts and normal response. Intermittent photic stimulation was performed with photic driving. No specific epileptiform discharge or electrographic seizure induced by hyperventilation or intermittent photic stimulation. IMPRESSION: This EEG is a normal study for the awake and drowsy states. No actual sleep state was recorded. No focal, lateralizing, specific epileptiform discharge or electrographic seizure is seen. WARREN RICHARDSON MD DR: RENARD/mini JOB#: [id number] / [id number] KASEY
== END | disposition home or self-care (01) ==
LOC: RT 10:02
PROVIDERS: ATTEND Psychiatry & Neurology Neurology
DX: R68.89 Other general symptoms and signs (principal)
CPT/HCPCS: 95816

== ENCOUNTER 2020-03-23 22:51 | Inpatient (IN) | payer OTHER ==
[~2020-03-23] VITALS: Ht 162.6 cm; Wt 83.4 kg
--- NOTE | 2020-03-23 23:31 | PHYS DOC ---
Past Medical History Past Medical History: No Pertinent History Past Surgical History: Cholecystectomy, Hysterectomy Additional Past Surgical Histo: OVARIAN TUMOR REMOVED Smoking Status: Never Smoker Alcohol Use: None Drug Use: None General Adult EDM: Chief Complaint: ABDOMINAL PAIN HPI: HPI: Patient is a 54 year old female who presents with epigastric abdominal pain. Patient states that this evening around 8:00 she began to have pain in her abdomen. She had previously eaten about 2hours before noting that she had had some papaya. She denied any diarrhea and states that she is had 1 small bowel movement today and yesterday this was normal. She denied any melena, melena hematochezia or hematemesis. Patient denied vomiting but states she does had some nausea. She describes the pain as sharp, waxing and waning and noted to go across the abdomen and down towards the symphysis pubis in the midline. Patient reports she is never had this pain before. She denied fever, chills, sweats, cough, chest pain, shortness of breath, pain with breathing. Review of Systems: Review of Systems: Constitutional: Denies fever or chills. [] Eyes: Denies change in visual acuity. [] HENT: Denies nasal congestion or sore throat. [] Respiratory: Denies cough or shortness of breath. [] Cardiovascular: Denies chest pain or edema. [] GI: See HPI. [] : Denies dysuria. [] Musculoskeletal: Denies back pain or joint pain. [] Integument: Denies rash. [] Neurologic: Denies headache, focal weakness or sensory changes. [] Endocrine: Denies polyuria or polydipsia. [] Lymphatic: Denies swollen glands. [] Psychiatric: Denies depression or anxiety. [] Heart Score: Risk Factors: Risk Factors: DM, Current or recent (<one month) smoker, HTN, HLP, family history of CAD, obesity. Risk Scores: Score 0 - 3: 2.5% MACE over next 6 weeks - Discharge Home Score 4 - 6: 20.3% MACE over next 6 weeks - Admit for Clinical Observation Score 7 - 10: 72.7% MACE over next 6 weeks - Early Invasive Strategies Allergies: Allergies: Allergies Coded Allergies Type Severity Reaction Last Updated Verified Milk Containing Products Allergy Severe Swelling 11/15/17 Yes milk Allergy Severe Swelling 4/12/18 Yes acetaminophen Adverse Reaction Mild upset stomache 11/15/17 Yes ibuprofen Adverse Reaction Mild upset stomache 11/15/17 Yes Physical Exam: PE: Constitutional: Well developed, well nourished, no acute distress, non-toxic appearance. [] HENT: Normocephalic, atraumatic, bilateral external ears normal, oropharynx moist, no oral exudates, nose normal. [] Eyes: PERRLA, EOMI, conjunctiva normal, no discharge. [] Neck: Normal range of motion, no tenderness, supple, no stridor. [] Cardiovascular: Regular rate and rhythm, grade 1/6 systolic murmur, no shift of PMI, pulses to the 2 dorsalis pedis bilaterally [] Lungs & Thorax: Bilateral breath sounds clear to auscultation [] Abdomen: Bowel sounds normal, soft, mild tenderness diffusely, no guarding no rebound, negative Coyne sign, no masses, no pulsatile masses. [] Skin: Warm, dry, no erythema, no rash. [] Back: No tenderness, no CVA tenderness. [] Extremities: No tenderness, no cyanosis, no clubbing, ROM intact, no edema. [] Neurologic: Alert and oriented X 3, normal motor function, normal sensory function, no focal deficits noted. [] Psychologic: Affect normal, judgement normal, mood normal. [] Current Patient Data: Vital Signs: Vital Signs Date Time Temp Pulse Resp B/P (MAP) Pulse Ox O2 Delivery O2 Flow Rate FiO2 03/23/20 23:02 97.7 74 22 138/65 (89) 98 Room Air 97.7 EKG: EKG: Heart rate 77 bpm, leftward axis, normal sinus rhythm, normal intervals, otherwise normal ECG [] Radiology/Procedures: Radiology/Procedures: [] Course & Med Decision Making: Course & Med Decision Making Pertinent Labs and Imaging studies reviewed. (See chart for details) [] Dragon Disclaimer: Dragon Disclaimer: This electronic medical record was generated, in whole or in part, using a voice recognition dictation system. Departure Departure Impression: Primary Impression: Small bowel obstruction Disposition: ADMITTED INPATIENT Condition: GOOD Referrals: GIRMA MOLINA MD (PCP) Justicifation of Admission Dx: Justifications for Admission: Justification of Admission Dx: Yes Comments: HIGINIO HERNANDEZ MD Mar 23, 2020 23:31
[2020-03-23] MEDS ORDERED: MAG HYDROX/ALUMINUM HYD/SIMETH 30 ML ORAL.SUSP PO ONE (23:45)
[2020-03-23] MEDS ORDERED: METOCLOPRAMIDE HCL 10 MG/2 ML VIAL. IVP ONE (23:45)
[2020-03-23] MEDS ORDERED: IV NORMAL SALINE 500ML BAG 500 ML IV ONE (23:45)
[2020-03-23] MEDS ORDERED: FAMOTIDINE 20 MG TABLET. PO ONE (23:45)
[2020-03-23 23:49] LABS: BASO % 1 % (0-3); EOS # 0.4 x10^3/uL (0.0-0.7); EOS % 5 % (0-3); HEMATOCRIT 41.8 % (36.0-47.0); HEMOGLOBIN 14.2 g/dL (12.0-15.5); LYMPH # 2.2 x10^3/uL (1.0-4.8); LYMPH % 28 % (24-48); MEAN CORPUSCULAR HEMOGLOBIN 30 pg (25-35); MEAN CORPUSCULAR HGB CONC 34 g/dL (31-37); MEAN CORPUSCULAR VOLUME 88 fL (79-100); MONO # 0.6 x10^3/uL (0.0-1.1); MONO % 7 % (0-9); NEUT # 4.8 x10^3/uL (1.8-7.7); NEUT % 60 % (31-73); PLATELET COUNT 346 x10^3/uL (140-400); RED BLOOD COUNT 4.73 x10^6/uL (3.50-5.40); RED CELL DISTRIBUTION WIDTH 12.4 % (11.5-14.5); WHITE BLOOD COUNT 7.9 x10^3/uL (4.0-11.0)
[2020-03-23 23:57] LABS: CALCIUM 9.8 mg/dL (8.5-10.1); CREATININE 0.6 mg/dL (0.6-1.0)
[2020-03-24] LABS: BILIRUBIN,URINE NEGATIVE (NEG); CLARITY,URINE CLEAR; COLOR,URINE YELLOW; NITRITE,URINE NEGATIVE (NEG); PROTEIN,URINE NEGATIVE (NEG-TRACE); UROBILINOGEN,URINE 0.2 mg/dL (0.2 mg/dL)
[2020-03-24 00:03] LABS: ALBUMIN 3.9 g/dL (3.4-5.0); TOTAL BILIRUBIN 0.3 mg/dL (0.2-1.0)
[2020-03-24 00:08] LABS: SQUAMOUS EPITHELIAL CELL,UR FEW /LPF
[2020-03-24 00:09] LABS: BACTERIA,URINE 0 /HPF (0-FEW); RBC,URINE OCC /HPF (0-2); WBC,URINE 0 /HPF (0-4)
[2020-03-24] MEDS ORDERED: IOHEXOL 300 MG/ML 100ML VIAL. IV ONE (01:00)
[2020-03-24] MEDS ORDERED: CONTRAST GIVEN. MC PRN ×2 (01:00→09:00)
[2020-03-24 04:50] VITALS: BP 115/70
--- NOTE | 2020-03-24 05:08 | RAD ---
INDICATION: Reason: Epigastric abdominal pain / Spl. Instructions: / History: COMPARISON: May 2018 TECHNIQUE: Axial CT images obtained through the abdomen and pelvis with contrast. One or more of the following individualized dose reduction techniques were utilized for this examination: 1. Automated exposure control; 2. Adjustment of the mA and/or kV according to patient size; 3. Use of iterative reconstruction technique. FINDINGS: Small hiatal hernia. Calcific atherosclerosis. No intrahepatic bile duct dilation. Multiple low-density lesions scattered throughout the liver. Some of the larger 1's have the appearance of cysts and others too small to characterize. Slightly increased from prior. No peripancreatic fluid collection. Spleen is unremarkable. No hydronephrosis. Urinary bladder is decompressed. Colonic diverticulosis. No periappendiceal inflammatory changes. Dilated loops of proximal small bowel with adjacent mesenteric edema and distal decompression. Small fat-containing umbilical hernia. Degenerative changes of the spine. IMPRESSION: * Dilated loops of small bowel with adjacent mesenteric edema and distal decompression which can be seen with small bowel obstruction. * Numerous low-density lesions the liver with some these have the appearance of cysts and others too small to characterize. Appears increased from prior. Electronically signed by: Tay Bruner MD (03/24/2020 2:01 AM) [id number]
[2020-03-24 07:00] VITALS: BP 124/81
--- NOTE | 2020-03-24 07:19 | RAD ---
KUB Clinical Indication: Reason: NG PLACEMENT / Spl. Instructions: / History: Comparison: CT abdomen and pelvis with contrast, earlier same day. Findings: Enteric tube tip is likely in the duodenal bulb. No obvious airspace disease. Interstitial markings are upper limits of normal. The cardiac size is normal. No obvious pneumoperitoneum. Cholecystectomy clips. There is a paucity of bowel gas, decreasing sensitivity., Of note the abnormal dilated small bowel loops on prior CT were fluid-filled, therefore not well evaluated radiographically. IMPRESSION: Enteric tube tip is in the duodenal bulb. Electronically signed by: José Luis Rojas MD (03/24/2020 7:16 AM) [id number]
[2020-03-24] MEDS ORDERED: HYDROmorphone 2 MG/ML VIAL IV PRN (08:00)
[2020-03-24] MEDS ORDERED: IV NORMAL SALINE 1000ML BAG 1,000 ML IV SCH (08:00)
[2020-03-24] MEDS: POTASSIUM CL 20MEQ D5-0.9%NACL 1,000 ML IV SCH ×3 (08:45→23:45)
--- NOTE | 2020-03-24 08:45 | PDOC ---
Provider Note Provider Note Pt seen .H&P dictated.#[id number]. Partial small bowel obstruction. Justicifation of Admission Dx: Justifications for Admission: Justification of Admission Dx: Yes Comments: GIRMA PANDYA MD Mar 24, 2020 08:45
[2020-03-24] MEDS ORDERED: IOHEXOL 300 MG/ML 100ML VIAL. PO ONE (09:00)
--- NOTE | 2020-03-24 09:38 | NUR ---
off floor for procedure : small bowel series
--- NOTE | 2020-03-24 09:48 | NUR ---
SS following for discharge planning. SS reviewed pt chart and discussed with pt RN. Pt is from home and is currently on room air. Pt having small bowel series today. SS will continue to follow for discharge planning.
--- NOTE | 2020-03-24 11:59 | HP ---
ADMIT DATE: 03/24/2020 MEDICAL HISTORY AND PHYSICAL LOCATION: 209. REASON FOR ADMISSION TO THE HOSPITAL: Abdominal pain, partial small-bowel obstruction. HISTORY OF PRESENT ILLNESS: The patient is a 54-year-old female patient known to me. She has a history of GERD and she also was having abdominal pain, lower on and off for a couple of hours, got progressively worse and she had 2 small bowel movements yesterday and the pain was getting increasing in intensity, was brought to the Emergency Room, had a CT scan, which shows a small-bowel obstruction. The patient had NG tube to suction. Surgery and GI was consulted. PAST SURGICAL HISTORY: She had a gallbladder surgery, hysterectomy and she also had an ovarian tumor removed when she was a teenager. ALLERGIES: MILK CONTAINING PRODUCTS, TYLENOL, IBUPROFEN. MEDICATIONS AT HOME: Takes vitamin D and calcium. PERSONAL HISTORY: No history of smoking, alcohol, drug abuse. FAMILY HISTORY: Unremarkable. REVIEW OF SYMPTOMS: Has some abdominal cramping. No vomiting blood, no blood in the stool. Rest of the 14 systems was reviewed and negative. PHYSICAL EXAMINATION: GENERAL: The patient is pleasant, not in any distress. VITAL SIGNS: Temperature 97, pulse 74, respirations 22, blood pressure 138/65, 98% on room air. HEENT: Head is atraumatic. Has an NG tube to intermittent suction through the nose. NECK: Supple. CHEST: Symmetrical. CARDIOVASCULAR: S1, S2. LUNGS: Clear. ABDOMEN: Soft, slight discomfort in the periumbilical area. Bowel sounds are sluggish. EXTERNAL GENITALIA: No Ashraf. RECTAL: Deferred. GENITOURINARY: The patient has a scar below the umbilicus in the midline from previous surgery on the left ovary. LABORATORY DATA: Shows a white count 8, hemoglobin 14, platelets 346. Electrolytes are sodium 140, potassium 4.0, chloride 104, bicarb 32, anion gap 6, BUN 17, creatinine 0.6, glucose 103. LFTs were normal. Urine was negative for any infection. Had a CT of the abdomen and pelvis, which shows dilated loops of small bowel with some mesenteric edema, small bowel obstruction, small numerous low density lesions in the liver, possible cyst. FINAL IMPRESSION: 1. Small-bowel obstruction. 2. Cyst in the liver. 3. Previous abdominal surgeries including gallbladder surgery, hysterectomy and left ovary removed. PLAN: At this time, NG tube to suction, IV fluids. GI, Surgical consult and hopefully should improve with conservative treatment. GIRMA MOLINA MD DR: SANJAY/mini JOB#: [id number] / [id number]
--- NOTE | 2020-03-24 13:28 | PDOC2 ---
GI CONSULT Date of Service: DATE: 03/24/20 TIME: 13:15 Reason For Consult: SBO HPI: HPI: Pleasant 54 y/o female who we have seen in the past. Long h/o GI issues - mostly recently bloating after eating despite Aloe Vera juice. Chart also suggest h/o IBS. Yesterday had acute onset of mid abdominal pain, then vomited this morning. Never had pain like that before. Passed some gas and small pieces of stool yesterday, none today. Imaging concerning for SBO. SBS in progress. Denies reflux/heartburn, dysphagia, hematemesis, diarrhea, constipation, hematochezia, melena, and weight loss. EGD by Dr. Leija in 11/2017 showed LA Grade B-C reflux, notch in pylorus suggestive of prior ulcer (+H. pylori), and normal duodenum. EGD and colonoscopy by Dr. Porter in 2013 showed esophagitis, gastritis, normal colonic mucosa, and internal hemorrhoids. S/p cholecystectomy (no stones - normal IOC). Past imaging w/ liver lesions (possible harmartomas/cysts/hemangioma). No pancreas history. Pt and daughter report that any prescription pill (including omeprazole which is why she stopped taking it) makes her feel sick - dizzy and off-balance. She prefers liquid medications. PMH: PMH: anxiety, GERD, H. pylori, hemorrhoids hysterectomy, left salpingo-oophorectomy, right lumpectomy (benign), breast biopsies (fibroadenoma), I&D right leg (spider bite), cholecystectomy (path w/ chronic cholecystitis and increased eosinophils) FH: Family History: No pertinent hx Social History: Smoke: No ALCOHOL: none Drugs: None ROS: GEN: Denies fevers, chills, sweats HEENT: Denies blurred vision, sore throat CV: Denies chest pain RESP: Denies shortness of air, cough GI: Per HPI : Denies hematuria, dysuria ENDO: Denies weight changes NEURO: Denies confusion, dizziness MSK: Denies weakness, joint pain/swelling SKIN: Denies jaundice, pruritus Vitals: Vitals: Vital Signs Date Time Temp Pulse Resp B/P (MAP) Pulse Ox O2 Delivery O2 Flow Rate FiO2 03/24/20 08:20 Room Air 8/19/20 07:00 97.5 86 20 124/81 (95) 96 97.5 Labs: Labs: Laboratory Tests Test 03/23/20 23:35 03/23/20 23:55 White Blood Count 7.9 x10^3/uL (4.0-11.0) Red Blood Count 4.73 x10^6/uL (3.50-5.40) Hemoglobin 14.2 g/dL (12.0-15.5) Hematocrit 41.8 % (36.0-47.0) Mean Corpuscular Volume 88 fL (79-100) Mean Corpuscular Hemoglobin 30 pg (25-35) Mean Corpuscular Hemoglobin Concent 34 g/dL (31-37) Red Cell Distribution Width 12.4 % (11.5-14.5) Platelet Count 346 x10^3/uL (140-400) Neutrophils (%) (Auto) 60 % (31-73) Lymphocytes (%) (Auto) 28 % (24-48) Monocytes (%) (Auto) 7 % (0-9) Eosinophils (%) (Auto) 5 % (0-3) Basophils (%) (Auto) 1 % (0-3) Neutrophils # (Auto) 4.8 x10^3/uL (1.8-7.7) Lymphocytes # (Auto) 2.2 x10^3/uL (1.0-4.8) Monocytes # (Auto) 0.6 x10^3/uL (0.0-1.1) Eosinophils # (Auto) 0.4 x10^3/uL (0.0-0.7) Basophils # (Auto) 0.0 x10^3/uL (0.0-0.2) Sodium Level 142 mmol/L (136-145) Potassium Level 4.0 mmol/L (3.5-5.1) Chloride Level 104 mmol/L (98-107) Carbon Dioxide Level 32 mmol/L (21-32) Anion Gap 6 (6-14) Blood Urea Nitrogen 17 mg/dL (7-20) Creatinine 0.6 mg/dL (0.6-1.0) Estimated GFR (Cockcroft-Gault) 105.0 BUN/Creatinine Ratio 28 (6-20) Glucose Level 103 mg/dL (70-99) Calcium Level 9.8 mg/dL (8.5-10.1) Total Bilirubin 0.3 mg/dL (0.2-1.0) Aspartate Amino Transf (AST/SGOT) 18 U/L (15-37) Alanine Aminotransferase (ALT/SGPT) 34 U/L (14-59) Alkaline Phosphatase 112 U/L (46-116) Troponin I Quantitative < 0.017 ng/mL (0.000-0.055) Total Protein 8.0 g/dL (6.4-8.2) Albumin 3.9 g/dL (3.4-5.0) Albumin/Globulin Ratio 1.0 (1.0-1.7) Lipase 92 U/L (73-393) Urine Collection Type Unknown Urine Color Yellow Urine Clarity Clear Urine pH 7.0 (<5.0-8.0) Urine Specific [place] 1.010 (1.000-1.030) Urine Protein Negative mg/dL (NEG-TRACE) Urine Glucose (UA) Negative mg/dL (NEG) Urine Ketones (Stick) Negative mg/dL (NEG) Urine Blood Negative (NEG) Urine Nitrite Negative (NEG) Urine Bilirubin Negative (NEG) Urine Urobilinogen Dipstick 0.2 mg/dL (0.2 mg/dL) Urine Leukocyte Esterase Negative (NEG) Urine RBC Occ /HPF (0-2) Urine WBC 0 /HPF (0-4) Urine Squamous Epithelial Cells Few /LPF Urine Bacteria 0 /HPF (0-FEW) Allergies: Coded Allergies: Milk Containing Products (Verified Allergy, Severe, Swelling, 11/15/17) milk (Verified Allergy, Severe, Swelling, 11/15/17) acetaminophen (Verified Adverse Reaction, Mild, upset stomache, 11/15/17) ibuprofen (Verified Adverse Reaction, Mild, upset stomache, 11/15/17) Medications: Current Medications Medications (Trade) Dose Ordered Sig/Lo Route PRN Reason Start Time Stop Time Status Last Admin Dose Admin Metoclopramide HCl (Reglan Vial) 10 mg 1X ONCE IVP 03/23/20 23:45 03/23/20 23:46 DC 03/23/20 23:57 Famotidine (Pepcid) 20 mg 1X ONCE PO 03/23/20 23:45 03/23/20 23:46 DC 03/23/20 23:57 Al Hydroxide/Mg Hydroxide (Mylanta Plus Xs) 30 ml 1X ONCE PO 03/23/20 23:45 03/23/20 23:46 DC 03/23/20 23:57 Sodium Chloride 500 ml @ 500 mls/hr 1X ONCE IV 03/23/20 23:45 03/24/20 00:44 DC 03/23/20 23:58 Iohexol (Omnipaque 300 Mg/ml) 75 ml 1X ONCE IV 03/24/20 01:00 03/24/20 01:01 DC 03/24/20 00:52 Iohexol (Omnipaque 300 Mg/ml) 200 ml 1X ONCE PO 03/24/20 09:00 03/24/20 09:01 DC 03/24/20 10:00 Imaging: Imaging: KUB 03/24 IMPRESSION: Enteric tube tip is in the duodenal bulb. CT A/P 03/24 IMPRESSION: * Dilated loops of small bowel with adjacent mesenteric edema and distal decompression which can be seen with small bowel obstruction. * Numerous low-density lesions the liver with some these have the appearance of cysts and others too small to characterize. Appears increased from prior. SBS 03/25 pending PE: GEN: NAD HEENT: Atraumatic, PERRL LUNGS: CTAB HEART: RRR ABD: some distention, soft, non-tender, a few tinkling bowel sounds, NG output frothy brown EXTREMITY: No edema SKIN: No rashes, no jaundice NEURO/PSYCH: A & O 3 A/P: A/P: Abd pain, vomiting - SBO on CT Dyspepsia, post-prandial bloating - h/o GERD, quit PPI H/o H. pylori, ?PUD CRC screen - UTD Diverticulosis S/p cholecystectomy Liver lesions Intolerance to many medications -- IV PPI if she'll take it. Await SBS. MICHAELA CHOE Mar 24, 2020 13:28
--- NOTE | 2020-03-24 14:02 | PDOC2 ---
CONSULT Date of Consult Date of Consult DATE: 03/24/20 TIME: 14:00 History of Present Illness Reason for Visit: The patient is a 54-year-old female reported to the hospital with abdominal pain. The pain began last night and was diffuse. She denies any associated nausea or vomiting. She states the pain is somewhat improved today and she has been passing gas. Her evaluation in the emergency department was suggestive of small bowel obstruction. She was admitted with nasogastric decompression. Past Medical History Past Medical History She denies Past Surgical History Past Surgical History Cholecystectomy, hysterectomy, excision of ovarian mass Past Surgical History: Other Family History Family History: Other Social History No ALCOHOL: none Drugs: None Lives: with Family Current Medications Current Medications Current Medications Metoclopramide HCl (Reglan Vial) 10 mg 1X ONCE IVP Last administered on 03/23/20at 23:57; Start 03/23/20 at 23:45; Stop 03/23/20 at 23:46; Status DC Famotidine (Pepcid) 20 mg 1X ONCE PO Last administered on 03/23/20at 23:57; Start 03/23/20 at 23:45; Stop 03/23/20 at 23:46; Status DC Al Hydroxide/Mg Hydroxide (Mylanta Plus Xs) 30 ml 1X ONCE PO Last administered on 03/23/20at 23:57; Start 03/23/20 at 23:45; Stop 03/23/20 at 23:46; Status DC Sodium Chloride 500 ml @ 500 mls/hr 1X ONCE IV Last administered on 03/23/20at 23:58; Start 03/23/20 at 23:45; Stop 03/24/20 at 00:44; Status DC Iohexol (Omnipaque 300 Mg/ml) 75 ml 1X ONCE IV Last administered on 03/24/20at 00:52; Start 03/24/20 at 01:00; Stop 03/24/20 at 01:01; Status DC Info (CONTRAST GIVEN -- Rx MONITORING) 1 each PRN DAILY PRN MC SEE COMMENTS; Start 03/24/20 at 01:00; Stop 03/24/20 at 08:54; Status DC Sodium Chloride 1,000 ml @ 75 mls/hr [id number] IV ; Start 03/24/20 at 08:00; Stop 03/24/20 at 08:45; Status DC Hydromorphone HCl (Dilaudid) 0.5 mg PRN Q2HRS PRN IV PAIN; Start 03/24/20 at 08:00 Potassium Chloride/Dextrose/ Sod Cl 1,000 ml @ 125 mls/hr Q8H IV ; Start 03/24/20 at 08:45 Iohexol (Omnipaque 300 Mg/ml) 200 ml 1X ONCE PO Last administered on 03/24/20at 10:00; Start 03/24/20 at 09:00; Stop 03/24/20 at 09:01; Status DC Info (CONTRAST GIVEN -- Rx MONITORING) 1 each PRN DAILY PRN MC SEE COMMENTS; Start 03/24/20 at 09:00; Stop 03/26/20 at 08:59 Pantoprazole Sodium (PROTONIX VIAL for IV PUSH) 40 mg DAILYAC IVP ; Start 03/24/20 at 14:00 Active Scripts Active Reported Calcium (Calcium Carbonate) 500 Mg Tablet 500 Mg PO Vitamin D (Cholecalciferol (Vitamin D3)) 5,000 Unit Tablet 5,000 Unit PO Allergies Allergies: Coded Allergies: Milk Containing Products (Verified Allergy, Severe, Swelling, 11/15/17) milk (Verified Allergy, Severe, Swelling, 11/15/17) acetaminophen (Verified Adverse Reaction, Mild, upset stomache, 11/15/17) ibuprofen (Verified Adverse Reaction, Mild, upset stomache, 11/15/17) ROS General: No: Chills, Night Sweats, Fatigue, Malaise, Appetite, Other PSYCHOLOGICAL ROS: No: Anxiety, Behavioral Disorder, Concentration difficultie, Decreased libido, Depression, Disorientation, Hallucinations, Hostility, Irritablity, Memory difficulties, Mood Swings, Obsessive thoughts, Physical abuse, Sexual abuse, Sleep disturbances, Suicidal ideation, Other Eyes: No Blurry vision, No Decreased vision, No Double vision, No Dry eyes, No Excessive tearing, No Eye Pain, No Itchy Eyes, No Loss of vision, No Photophobia, No Scotomata, No Uses contacts, No Uses glasses, No Other HEENT: No: Heacaches, Visual Changes, Hearing change, Nasal congestion, Nasal discharge, Oral lesions, Sinus pain, Sore Throat, Epistaxis, Sneezing, Snoring, Tinnitus, Vertigo, Vocal changes, Other ALLERGY AND IMMUNOLOGY: No: Hives, Insect Bite Sensitivity, Itchy/Watery Eyes, Nasal Congestion, Post Nasal Drip, Seasonal Allergies, Other Hematological and Lymphatic: No: Bleeding Problems, Blood Clots, Blood Transfusions, Brusing, Night Sweats, Pallor, Swollen Lymph Nodes, Other ENDOCRINE: No: Breast Changes, Galactorrhea, Hair Pattern Changes, Hot Flashes, Malaise/lethargy, Mood Swings, Palpitations, Polydipsia/polyuria, Skin Changes, Temperature Intolerance, Unexpected Weight Changes, Other Respiratory: No: Cough, Hemoptysis, Orthopnea, Pleuritic Pain, Shortness of breath, SOB with excertion, Sputum Changes, Stridor, Tachypnea, Wheezing, Other Cardiovascular: No Chest Pain, No Palpitations, No Orthopnea, No Paroxysmal Noc. Dyspnea, No Edema, No Lt Headedness, No Other Gastrointestinal: Yes Abdominal Pain Musculoskeletal: No Gait Disturbance, No Joint Pain, No Joint Stiffness, No Joint Swelling, No Muscle Pain, No Muscular Weakness, No Pain In:, No Swelling In:, No Other Neurological: No Behavorial Changes, No Bowel/Bladder ControlChng, No Confusion, No Dizziness, No Gait Disturbance, No Headaches, No Impaired Coord/balance, No Memory Loss, No Numbness/Tingling, No Seizures, No Speech Problems, No Tremors, No Visual Changes, No Weakness, No Other Skin: No Dry Skin, No Eczema, No Hair Changes, No Lumps, No Mole Changes, No Mottling, No Nail Changes, No Pruritus, No Rash, No Skin Lesion Changes, No Other, No Acne Physical Exam General: Alert, Oriented X3, Cooperative HEENT: Atraumatic Lungs: Clear to auscultation Heart: Regular rate Abdomen: Soft (Currently nontender) Extremities: No clubbing, No cyanosis Skin: No rashes, No breakdown Neuro: Normal speech Psych/Mental Status: Mental status NL Vitals VITALS Vital Signs Date Time Temp Pulse Resp B/P (MAP) Pulse Ox O2 Delivery O2 Flow Rate FiO2 03/24/20 08:20 Room Air 03/24/20 07:00 97.5 86 20 124/81 (95) 96 97.5 Labs Labs Laboratory Tests Test 03/23/20 23:35 03/23/20 23:55 White Blood Count 7.9 x10^3/uL (4.0-11.0) Red Blood Count 4.73 x10^6/uL (3.50-5.40) Hemoglobin 14.2 g/dL (12.0-15.5) Hematocrit 41.8 % (36.0-47.0) Mean Corpuscular Volume 88 fL (79-100) Mean Corpuscular Hemoglobin 30 pg (25-35) Mean Corpuscular Hemoglobin Concent 34 g/dL (31-37) Red Cell Distribution Width 12.4 % (11.5-14.5) Platelet Count 346 x10^3/uL (140-400) Neutrophils (%) (Auto) 60 % (31-73) Lymphocytes (%) (Auto) 28 % (24-48) Monocytes (%) (Auto) 7 % (0-9) Eosinophils (%) (Auto) 5 % (0-3) Basophils (%) (Auto) 1 % (0-3) Neutrophils # (Auto) 4.8 x10^3/uL (1.8-7.7) Lymphocytes # (Auto) 2.2 x10^3/uL (1.0-4.8) Monocytes # (Auto) 0.6 x10^3/uL (0.0-1.1) Eosinophils # (Auto) 0.4 x10^3/uL (0.0-0.7) Basophils # (Auto) 0.0 x10^3/uL (0.0-0.2) Sodium Level 142 mmol/L (136-145) Potassium Level 4.0 mmol/L (3.5-5.1) Chloride Level 104 mmol/L (98-107) Carbon Dioxide Level 32 mmol/L (21-32) Anion Gap 6 (6-14) Blood Urea Nitrogen 17 mg/dL (7-20) Creatinine 0.6 mg/dL (0.6-1.0) Estimated GFR (Cockcroft-Gault) 105.0 BUN/Creatinine Ratio 28 (6-20) Glucose Level 103 mg/dL (70-99) Calcium Level 9.8 mg/dL (8.5-10.1) Total Bilirubin 0.3 mg/dL (0.2-1.0) Aspartate Amino Transf (AST/SGOT) 18 U/L (15-37) Alanine Aminotransferase (ALT/SGPT) 34 U/L (14-59) Alkaline Phosphatase 112 U/L (46-116) Troponin I Quantitative < 0.017 ng/mL (0.000-0.055) Total Protein 8.0 g/dL (6.4-8.2) Albumin 3.9 g/dL (3.4-5.0) Albumin/Globulin Ratio 1.0 (1.0-1.7) Lipase 92 U/L (73-393) Urine Collection Type Unknown Urine Color Yellow Urine Clarity Clear Urine pH 7.0 (<5.0-8.0) Urine Specific [place] 1.010 (1.000-1.030) Urine Protein Negative mg/dL (NEG-TRACE) Urine Glucose (UA) Negative mg/dL (NEG) Urine Ketones (Stick) Negative mg/dL (NEG) Urine Blood Negative (NEG) Urine Nitrite Negative (NEG) Urine Bilirubin Negative (NEG) Urine Urobilinogen Dipstick 0.2 mg/dL (0.2 mg/dL) Urine Leukocyte Esterase Negative (NEG) Urine RBC Occ /HPF (0-2) Urine WBC 0 /HPF (0-4) Urine Squamous Epithelial Cells Few /LPF Urine Bacteria 0 /HPF (0-FEW) Laboratory Tests Test 03/23/20 23:35 03/23/20 23:55 White Blood Count 7.9 x10^3/uL (4.0-11.0) Red Blood Count 4.73 x10^6/uL (3.50-5.40) Hemoglobin 14.2 g/dL (12.0-15.5) Hematocrit 41.8 % (36.0-47.0) Mean Corpuscular Volume 88 fL (79-100) Mean Corpuscular Hemoglobin 30 pg (25-35) Mean Corpuscular Hemoglobin Concent 34 g/dL (31-37) Red Cell Distribution Width 12.4 % (11.5-14.5) Platelet Count 346 x10^3/uL (140-400) Neutrophils (%) (Auto) 60 % (31-73) Lymphocytes (%) (Auto) 28 % (24-48) Monocytes (%) (Auto) 7 % (0-9) Eosinophils (%) (Auto) 5 % (0-3) Basophils (%) (Auto) 1 % (0-3) Neutrophils # (Auto) 4.8 x10^3/uL (1.8-7.7) Lymphocytes # (Auto) 2.2 x10^3/uL (1.0-4.8) Monocytes # (Auto) 0.6 x10^3/uL (0.0-1.1) Eosinophils # (Auto) 0.4 x10^3/uL (0.0-0.7) Basophils # (Auto) 0.0 x10^3/uL (0.0-0.2) Sodium Level 142 mmol/L (136-145) Potassium Level 4.0 mmol/L (3.5-5.1) Chloride Level 104 mmol/L (98-107) Carbon Dioxide Level 32 mmol/L (21-32) Anion Gap 6 (6-14) Blood Urea Nitrogen 17 mg/dL (7-20) Creatinine 0.6 mg/dL (0.6-1.0) Estimated GFR (Cockcroft-Gault) 105.0 BUN/Creatinine Ratio 28 (6-20) Glucose Level 103 mg/dL (70-99) Calcium Level 9.8 mg/dL (8.5-10.1) Total Bilirubin 0.3 mg/dL (0.2-1.0) Aspartate Amino Transf (AST/SGOT) 18 U/L (15-37) Alanine Aminotransferase (ALT/SGPT) 34 U/L (14-59) Alkaline Phosphatase 112 U/L (46-116) Troponin I Quantitative < 0.017 ng/mL (0.000-0.055) Total Protein 8.0 g/dL (6.4-8.2) Albumin 3.9 g/dL (3.4-5.0) Albumin/Globulin Ratio 1.0 (1.0-1.7) Lipase 92 U/L (73-393) Urine Collection Type Unknown Urine Color Yellow Urine Clarity Clear Urine pH 7.0 (<5.0-8.0) Urine Specific [place] 1.010 (1.000-1.030) Urine Protein Negative mg/dL (NEG-TRACE) Urine Glucose (UA) Negative mg/dL (NEG) Urine Ketones (Stick) Negative mg/dL (NEG) Urine Blood Negative (NEG) Urine Nitrite Negative (NEG) Urine Bilirubin Negative (NEG) Urine Urobilinogen Dipstick 0.2 mg/dL (0.2 mg/dL) Urine Leukocyte Esterase Negative (NEG) Urine RBC Occ /HPF (0-2) Urine WBC 0 /HPF (0-4) Urine Squamous Epithelial Cells Few /LPF Urine Bacteria 0 /HPF (0-FEW) Assessment/Plan Assessment/Plan 54-year-old female with abdominal pain. Currently an NG tube is present and she has some clinical improvement. I would recommend a small bowel series with Gastrografin to better evaluate the small intestine. GABRIELLA HUITRON MD Mar 24, 2020 14:02
[2020-03-24] MEDS: PANTOPRAZOLE IV PUSH 40 MG VIAL. IVP SCH (14:30)
--- NOTE | 2020-03-24 14:39 | RAD ---
EXAM: SMALL BOWEL FOLLOW-THROUGH. HISTORY: Small bowel obstruction. COMPARISON: None. FINDINGS: A school cafeteria head cook image was obtained. Water-soluble contrast material was administered through the patient's nasogastric tube and followed in its course through the stomach, small bowel and proximal colon with plain radiographs. Fluoroscopy was not performed. The school cafeteria head cook image demonstrates a nasogastric tube with its tip in the distal stomach. There is contrast within the bladder from a prior procedure. Cholecystectomy clips are noted. Contrast progresses from the stomach into mildly dilated small bowel loops. Contrast was retained within the mid jejunum through 2 hours, consistent with a component of small bowel obstruction. An additional image taken at 4 hours demonstrates clearance of previously retained proximal contrast into decompressed distal small bowel loops and the colon. This examination suggests a potential resolved transition point just to the right of midline on image #8. No small bowel lesion is identified. The small bowel fold pattern is unremarkable. IMPRESSION: 1. Findings consistent with small bowel obstruction through 2 hours, with transition point in the jejunum, likely to the right of midline. This resolved between 2-4 hours, with progression of retained proximal contrast through the colon. Electronically signed by: Cash Hastings MD (03/24/2020 2:36 PM) [id number]
[2020-03-24 15:00] VITALS: BP 118/80
[2020-03-24] MEDS ORDERED: ONDANSETRON PF 4 MG/2 ML VIAL. IVP PRN (18:00)
[2020-03-24 19:00] VITALS: BP 143/95
[2020-03-24 23:00] VITALS: BP_SYST 110; BP_SYST 153; BP_DIAS 57; BP_DIAS 86
[2020-03-25 03:00] VITALS: BP 131/83
[2020-03-25 06:25] LABS: BASO % 0 % (0-3); EOS # 0.3 x10^3/uL (0.0-0.7); EOS % 5 % (0-3); HEMATOCRIT 37.1 % (36.0-47.0); HEMOGLOBIN 12.7 g/dL (12.0-15.5); LYMPH # 1.3 x10^3/uL (1.0-4.8); LYMPH % 20 % (24-48); MEAN CORPUSCULAR HEMOGLOBIN 31 pg (25-35); MEAN CORPUSCULAR HGB CONC 34 g/dL (31-37); MEAN CORPUSCULAR VOLUME 89 fL (79-100); MONO # 0.5 x10^3/uL (0.0-1.1); MONO % 8 % (0-9); NEUT # 4.5 x10^3/uL (1.8-7.7); NEUT % 67 % (31-73); PLATELET COUNT 293 x10^3/uL (140-400); RED BLOOD COUNT 4.15 x10^6/uL (3.50-5.40); RED CELL DISTRIBUTION WIDTH 12.4 % (11.5-14.5); WHITE BLOOD COUNT 6.6 x10^3/uL (4.0-11.0)
[2020-03-25 07:00] VITALS: BP 139/72
[2020-03-25 07:06] LABS: CALCIUM 8.4 mg/dL (8.5-10.1); CREATININE 0.5 mg/dL (0.6-1.0); GFR 129.6
[2020-03-25] MEDS: PANTOPRAZOLE IV PUSH 40 MG VIAL. IVP SCH (08:12)
--- NOTE | 2020-03-25 08:45 | PDOC ---
PROGRESS NOTES Date of Service: DATE: 03/25/20 TIME: 08:43 Subjective Subjective feel s better today Objective Objective Vital Signs Date Time Temp Pulse Resp B/P (MAP) Pulse Ox O2 Delivery O2 Flow Rate FiO2 03/25/20 03:00 98.2 86 18 131/83 (99) 99 Room Air 98.2 Intake and Output 03/25/20 07:00 Output Total 800 ml Balance -800 ml Output Urine/Stool Mix 300 ml Gastric Drainage Total 500 ml # Voids 2 # Bowel Movements 1 Physical Exam Abdomen: Soft (Currently nontender) Heart: Regular rate Extremities: No clubbing, No cyanosis General: Alert, Oriented X3, Cooperative HEENT: Atraumatic Lungs: Clear to auscultation MUSCULOSKELETAL: No deformity, No swelling Neuro: Normal speech Psych/Mental Status: Mental status NL Skin: No rashes, No breakdown COMMENT ngt present Assessment Assessment FINAL IMPRESSION: 1. Small-bowel obstruction. 2. Cyst in the liver. 3. Previous abdominal surgeries including gallbladder surgery, hysterectomy and left ovary removed. PLAN: small bowel series shows improvement , partial small bowel obstruction iv fluids for now clear liquids today. labs ok. At this time, NG tube to suction, IV fluids. GI, Surgical consult and hopefully should improve with conservative treatment. Comment Review of Relevant I have reviewed the following items jacinta (where applicable) has been applied. Labs Laboratory Tests Test 03/25/20 05:53 White Blood Count 6.6 x10^3/uL (4.0-11.0) Red Blood Count 4.15 x10^6/uL (3.50-5.40) Hemoglobin 12.7 g/dL (12.0-15.5) Hematocrit 37.1 % (36.0-47.0) Mean Corpuscular Volume 89 fL (79-100) Mean Corpuscular Hemoglobin 31 pg (25-35) Mean Corpuscular Hemoglobin Concent 34 g/dL (31-37) Red Cell Distribution Width 12.4 % (11.5-14.5) Platelet Count 293 x10^3/uL (140-400) Neutrophils (%) (Auto) 67 % (31-73) Lymphocytes (%) (Auto) 20 % (24-48) Monocytes (%) (Auto) 8 % (0-9) Eosinophils (%) (Auto) 5 % (0-3) Basophils (%) (Auto) 0 % (0-3) Neutrophils # (Auto) 4.5 x10^3/uL (1.8-7.7) Lymphocytes # (Auto) 1.3 x10^3/uL (1.0-4.8) Monocytes # (Auto) 0.5 x10^3/uL (0.0-1.1) Eosinophils # (Auto) 0.3 x10^3/uL (0.0-0.7) Basophils # (Auto) 0.0 x10^3/uL (0.0-0.2) Sodium Level 145 mmol/L (136-145) Potassium Level 4.0 mmol/L (3.5-5.1) Chloride Level 111 mmol/L (98-107) Carbon Dioxide Level 26 mmol/L (21-32) Anion Gap 8 (6-14) Blood Urea Nitrogen 14 mg/dL (7-20) Creatinine 0.5 mg/dL (0.6-1.0) Estimated GFR (Cockcroft-Gault) 129.6 Glucose Level 106 mg/dL (70-99) Calcium Level 8.4 mg/dL (8.5-10.1) Medications Current Medications Info (CONTRAST GIVEN -- Rx MONITORING) 1 each PRN DAILY PRN MC SEE COMMENTS; Start 03/24/20 at 09:00; Stop 03/26/20 at 08:59 Iohexol (Omnipaque 300 Mg/ml) 200 ml 1X ONCE PO Last administered on 03/24/20at 10:00; Start 03/24/20 at 09:00; Stop 03/24/20 at 09:01; Status DC Ondansetron HCl (Zofran) 8 mg PRN Q6HRS PRN IVP NAUSEA/VOMITING; Start 03/24/20 at 18:00 Pantoprazole Sodium (PROTONIX VIAL for IV PUSH) 40 mg DAILYAC IVP Last administered on 03/25/20at 08:12; Start 03/24/20 at 14:00 Potassium Chloride/Dextrose/ Sod Cl 1,000 ml @ 125 mls/hr Q8H IV Last administered on 03/24/20at 23:45; Start 03/24/20 at 08:45 Vitals/I & O Vital Sign - Last 24 Hours 03/24/20 03/24/20 03/24/2019/20 15:00 19:00 20:00 23:00 Temp 97.8 97.9 97.7 97.8 97.9 97.7 Pulse 85 87 90 Resp 20 18 19 B/P (MAP) 118/80 (93) 143/95 (111) 110/57 (74) Pulse Ox 96 97 98 O2 Delivery Room Air Room Air Room Air Room Air 03/25/20 03:00 Temp 98.2 98.2 Pulse 86 Resp 18 B/P (MAP) 131/83 (99) Pulse Ox 99 O2 Delivery Room Air Intake and Output 03/24/20 03/24/20 03/25/20 15:00 23:00 07:00 Output Total 300 ml 500 ml Balance -300 ml -500 ml Justicifation of Admission Dx: Justifications for Admission: Justification of Admission Dx: Yes GIRMA MOLINA MD Mar 25, 2020 08:45
[2020-03-25] MEDS: POTASSIUM CL 20MEQ D5-0.9%NACL 1,000 ML IV SCH ×2 (09:33→18:46)
--- NOTE | 2020-03-25 10:02 | PDOC ---
SURGICAL PROGRESS NOTE DATE: 03/25/20 TIME: 09:59 Subjective improved, still some pain loose stool yesterday Vital Signs Vital Signs Date Time Temp Pulse Resp B/P (MAP) Pulse Ox O2 Delivery O2 Flow Rate FiO2 03/25/20 07:40 Room Air 03/25/20 03:00 98.2 86 18 131/83 (99) 99 98.2 I&O Intake and Output 03/25/20 07:00 Output Total 800 ml Balance -800 ml Output Urine/Stool Mix 300 ml Gastric Drainage Total 500 ml # Voids 2 # Bowel Movements 1 General: Alert, Oriented X3, Cooperative HEENT: Other (ng in place) Abdomen: Soft, No tenderness Labs Laboratory Tests Test 03/23/20 23:35 03/23/20 23:55 03/25/20 05:53 White Blood Count 7.9 x10^3/uL (4.0-11.0) 6.6 x10^3/uL (4.0-11.0) Red Blood Count 4.73 x10^6/uL (3.50-5.40) 4.15 x10^6/uL (3.50-5.40) Hemoglobin 14.2 g/dL (12.0-15.5) 12.7 g/dL (12.0-15.5) Hematocrit 41.8 % (36.0-47.0) 37.1 % (36.0-47.0) Mean Corpuscular Volume 88 fL (79-100) 89 fL (79-100) Mean Corpuscular Hemoglobin 30 pg (25-35) 31 pg (25-35) Mean Corpuscular Hemoglobin Concent 34 g/dL (31-37) 34 g/dL (31-37) Red Cell Distribution Width 12.4 % (11.5-14.5) 12.4 % (11.5-14.5) Platelet Count 346 x10^3/uL (140-400) 293 x10^3/uL (140-400) Neutrophils (%) (Auto) 60 % (31-73) 67 % (31-73) Lymphocytes (%) (Auto) 28 % (24-48) 20 % (24-48) Monocytes (%) (Auto) 7 % (0-9) 8 % (0-9) Eosinophils (%) (Auto) 5 % (0-3) 5 % (0-3) Basophils (%) (Auto) 1 % (0-3) 0 % (0-3) Neutrophils # (Auto) 4.8 x10^3/uL (1.8-7.7) 4.5 x10^3/uL (1.8-7.7) Lymphocytes # (Auto) 2.2 x10^3/uL (1.0-4.8) 1.3 x10^3/uL (1.0-4.8) Monocytes # (Auto) 0.6 x10^3/uL (0.0-1.1) 0.5 x10^3/uL (0.0-1.1) Eosinophils # (Auto) 0.4 x10^3/uL (0.0-0.7) 0.3 x10^3/uL (0.0-0.7) Basophils # (Auto) 0.0 x10^3/uL (0.0-0.2) 0.0 x10^3/uL (0.0-0.2) Sodium Level 142 mmol/L (136-145) 145 mmol/L (136-145) Potassium Level 4.0 mmol/L (3.5-5.1) 4.0 mmol/L (3.5-5.1) Chloride Level 104 mmol/L (98-107) 111 mmol/L (98-107) Carbon Dioxide Level 32 mmol/L (21-32) 26 mmol/L (21-32) Anion Gap 6 (6-14) 8 (6-14) Blood Urea Nitrogen 17 mg/dL (7-20) 14 mg/dL (7-20) Creatinine 0.6 mg/dL (0.6-1.0) 0.5 mg/dL (0.6-1.0) Estimated GFR (Cockcroft-Gault) 105.0 129.6 BUN/Creatinine Ratio 28 (6-20) Glucose Level 103 mg/dL (70-99) 106 mg/dL (70-99) Calcium Level 9.8 mg/dL (8.5-10.1) 8.4 mg/dL (8.5-10.1) Total Bilirubin 0.3 mg/dL (0.2-1.0) Aspartate Amino Transf (AST/SGOT) 18 U/L (15-37) Alanine Aminotransferase (ALT/SGPT) 34 U/L (14-59) Alkaline Phosphatase 112 U/L (46-116) Troponin I Quantitative < 0.017 ng/mL (0.000-0.055) Total Protein 8.0 g/dL (6.4-8.2) Albumin 3.9 g/dL (3.4-5.0) Albumin/Globulin Ratio 1.0 (1.0-1.7) Lipase 92 U/L (73-393) Urine Collection Type Unknown Urine Color Yellow Urine Clarity Clear Urine pH 7.0 (<5.0-8.0) Urine Specific [place] 1.010 (1.000-1.030) Urine Protein Negative mg/dL (NEG-TRACE) Urine Glucose (UA) Negative mg/dL (NEG) Urine Ketones (Stick) Negative mg/dL (NEG) Urine Blood Negative (NEG) Urine Nitrite Negative (NEG) Urine Bilirubin Negative (NEG) Urine Urobilinogen Dipstick 0.2 mg/dL (0.2 mg/dL) Urine Leukocyte Esterase Negative (NEG) Urine RBC Occ /HPF (0-2) Urine WBC 0 /HPF (0-4) Urine Squamous Epithelial Cells Few /LPF Urine Bacteria 0 /HPF (0-FEW) Laboratory Tests Test 03/25/20 05:53 White Blood Count 6.6 x10^3/uL (4.0-11.0) Red Blood Count 4.15 x10^6/uL (3.50-5.40) Hemoglobin 12.7 g/dL (12.0-15.5) Hematocrit 37.1 % (36.0-47.0) Mean Corpuscular Volume 89 fL (79-100) Mean Corpuscular Hemoglobin 31 pg (25-35) Mean Corpuscular Hemoglobin Concent 34 g/dL (31-37) Red Cell Distribution Width 12.4 % (11.5-14.5) Platelet Count 293 x10^3/uL (140-400) Neutrophils (%) (Auto) 67 % (31-73) Lymphocytes (%) (Auto) 20 % (24-48) Monocytes (%) (Auto) 8 % (0-9) Eosinophils (%) (Auto) 5 % (0-3) Basophils (%) (Auto) 0 % (0-3) Neutrophils # (Auto) 4.5 x10^3/uL (1.8-7.7) Lymphocytes # (Auto) 1.3 x10^3/uL (1.0-4.8) Monocytes # (Auto) 0.5 x10^3/uL (0.0-1.1) Eosinophils # (Auto) 0.3 x10^3/uL (0.0-0.7) Basophils # (Auto) 0.0 x10^3/uL (0.0-0.2) Sodium Level 145 mmol/L (136-145) Potassium Level 4.0 mmol/L (3.5-5.1) Chloride Level 111 mmol/L (98-107) Carbon Dioxide Level 26 mmol/L (21-32) Anion Gap 8 (6-14) Blood Urea Nitrogen 14 mg/dL (7-20) Creatinine 0.5 mg/dL (0.6-1.0) Estimated GFR (Cockcroft-Gault) 129.6 Glucose Level 106 mg/dL (70-99) Calcium Level 8.4 mg/dL (8.5-10.1) Assessment/Plan contrast passed to colon on SBFT remove ng, trial clears Justicifation of Admission Dx: Justifications for Admission: Justification of Admission Dx: Yes MARY ALICE SUM[employer]ERS [employer] Mar 25, 2020 10:02
[2020-03-25 11:00] VITALS: BP 133/76
--- NOTE | 2020-03-25 12:42 | NUR ---
SS following up with discharge planning. SS reviewed pt chart and discussed with pt RN. Pt is currently on room air and clear liquid diet. Discharge plan is to home when medically ready. SS will continue to follow for discharge planning.
--- NOTE | 2020-03-25 13:04 | PDOC ---
Date of Service: DATE: 03/25/20 TIME: 13:02 Subjective: Subjective: Feels much better. Taking some clears. Diarrhea last night. Objective: Vital Signs: Vital Signs Date Time Temp Pulse Resp B/P (MAP) Pulse Ox O2 Delivery O2 Flow Rate FiO2 03/25/20 11:00 97.6 75 18 133/76 (95) 96 Room Air 97.6 Labs: Laboratory Tests Test 03/25/20 05:53 White Blood Count 6.6 x10^3/uL Red Blood Count 4.15 x10^6/uL Hemoglobin 12.7 g/dL Hematocrit 37.1 % Mean Corpuscular Volume 89 fL Mean Corpuscular Hemoglobin 31 pg Mean Corpuscular Hemoglobin Concent 34 g/dL Red Cell Distribution Width 12.4 % Platelet Count 293 x10^3/uL Neutrophils (%) (Auto) 67 % Lymphocytes (%) (Auto) 20 % Monocytes (%) (Auto) 8 % Eosinophils (%) (Auto) 5 % Basophils (%) (Auto) 0 % Neutrophils # (Auto) 4.5 x10^3/uL Lymphocytes # (Auto) 1.3 x10^3/uL Monocytes # (Auto) 0.5 x10^3/uL Eosinophils # (Auto) 0.3 x10^3/uL Basophils # (Auto) 0.0 x10^3/uL Sodium Level 145 mmol/L Potassium Level 4.0 mmol/L Chloride Level 111 mmol/L Carbon Dioxide Level 26 mmol/L Anion Gap 8 Blood Urea Nitrogen 14 mg/dL Creatinine 0.5 mg/dL Estimated GFR (Cockcroft-Gault) 129.6 Glucose Level 106 mg/dL Calcium Level 8.4 mg/dL Imaging: SBS 03/24 IMPRESSION: 1. Findings consistent with small bowel obstruction through 2 hours, with t ransition point in the jejunum, likely to the right of midline. This resolved between 2-4 hours, with progression of retained proximal contrast through the colon. PE: GEN: NAD, daughter present LUNGS: CTAB HEART: RRR ABD: BS+, soft, non-tender NEURO/PSYCH: A & O 3 A/P: SBO - resolving GERD, h/o H . pylori -- Diet per surgery. When ready to DC, would send home w/ H. pylori treatment - she prefers to try liquid PPI. Justicifation of Admission Dx: Justifications for Admission: Justification of Admission Dx: Yes MICHAELA CHOE Mar 25, 2020 13:04
[2020-03-25 15:00] VITALS: BP 134/80
[2020-03-25 19:25] VITALS: BP 148/74
[2020-03-25 23:33] VITALS: BP 114/68
[2020-03-26 02:57] VITALS: BP 127/79
[2020-03-26] MEDS: POTASSIUM CL 20MEQ D5-0.9%NACL 1,000 ML IV SCH ×3 (04:41→16:07)
[2020-03-26 07:00] VITALS: BP 120/75
--- NOTE | 2020-03-26 08:28 | PDOC ---
PROGRESS NOTES Date of Service: DATE: 03/26/20 TIME: 08:26 Subjective Subjective tolerating clear liquid diet Objective Objective Vital Signs Date Time Temp Pulse Resp B/P (MAP) Pulse Ox O2 Delivery O2 Flow Rate FiO2 03/26/20 07:00 98.0 71 18 120/75 (90) 97 Room Air 98.0 Intake and Output 03/26/20 07:00 Intake Total 4030 ml Output Total 100 ml Balance 3930 ml Intake Oral 1030 ml IV Total 3000 ml Gastric Drainage Total 100 ml # Voids 2 Physical Exam Abdomen: Soft, No tenderness Heart: Regular rate Extremities: No clubbing, No cyanosis General: Alert, Oriented X3, Cooperative HEENT: Other (ng in place) Lungs: Clear to auscultation MUSCULOSKELETAL: No deformity, No swelling Neuro: Normal speech Psych/Mental Status: Mental status NL Skin: No rashes, No breakdown Assessment Assessment FINAL IMPRESSION: 1. Small-bowel obstruction. 2. Cyst in the liver. 3. Previous abdominal surgeries including gallbladder surgery, hysterectomy and left ovary removed. PLAN:advance to full liquids small bowel series shows improvement , partial small bowel obstruction iv fluids for now d/c home later today or tomorrow Comment Review of Relevant I have reviewed the following items jacinta (where applicable) has been applied. Vitals/I & O Vital Sign - Last 24 Hours 03/25/20 03/25/20 03/25/20 03/25/20 11:00 15:00 19:25 20:00 Temp 97.6 97.7 97.9 97.6 97.7 97.9 Pulse 75 76 74 Resp 18 18 18 B/P (MAP) 133/76 (95) 134/80 (98) 148/74 (98) Pulse Ox 96 98 96 O2 Delivery Room Air Room Air Room Air Room Air 03/25/20 03/26/20 03/26/20 23:33 02:57 07:00 Temp 98.1 98.1 98.0 98.1 98.1 98.0 Pulse 77 83 71 Resp 18 16 18 B/P (MAP) 114/68 (83) 127/79 (95) 120/75 (90) Pulse Ox 98 97 97 O2 Delivery Room Air Room Air Room Air Intake and Output 03/25/20 03/25/20 03/26/20 15:00 23:00 07:00 Intake Total 1290 ml 1740 ml 1000 ml Output Total 100 ml Balance 1190 ml 1740 ml 1000 ml Justicifation of Admission Dx: Justifications for Admission: Justification of Admission Dx: Yes GIRMA MOLINA MD Mar 26, 2020 08:28
[2020-03-26] MEDS: PANTOPRAZOLE IV PUSH 40 MG VIAL. IVP SCH (08:42)
[2020-03-26] MEDS ORDERED: OMEP40CA45 PO (08:59)
[2020-03-26] MEDS ORDERED: SUCR1ORA5 PO (08:59)
--- NOTE | 2020-03-26 09:16 | EKG ---
[facility] [address] [place] [address] Test Date: 2020-03-24 Test Time: 00:11:13 Pat Name: ROSALVA BRYSON Department: Room: Gender: F Production Assembler: : 1965 Requested By: HIGINIO ABRAHAM Order Number: [id number] Reading MD: Measurements Intervals [place] Rate: 77 P: -28 AR: 134 QRS: -8 QRSD: 86 T: 16 QT: 404 QTc: 459 Interpretive Statements SINUS RHYTHM LEFTWARD AXIS OTHERWISE NORMAL ECG RI6.02 No previous ECG available for comparison
--- NOTE | 2020-03-26 10:48 | PDOC ---
Date of Service: DATE: 03/26/20 TIME: 10:45 Subjective: Subjective: Asking about advancing diet. Says was told to eat smaller meals - has questions about this. More loose stools. Objective: Vital Signs: Vital Signs Date Time Temp Pulse Resp B/P (MAP) Pulse Ox O2 Delivery O2 Flow Rate FiO2 03/26/20 08:00 Room Air 03/26/20 07:00 98.0 71 18 120/75 (90) 97 98.0 PE: GEN: NAD LUNGS: CTAB HEART: RRR ABD: non-tender, BS+ NEURO/PSYCH: A & O 3 A/P: SBO - resolving GERD/dyspepsia, h/o H . pylori -- Okay to try advancing diet per GI - defer to surgery. H. pylori treatment on DC w/ liquid PPI. Justicifation of Admission Dx: Justifications for Admission: Justification of Admission Dx: Yes MICHAELA CHOE Mar 26, 2020 10:48
[2020-03-26 11:00] VITALS: BP 123/76
--- NOTE | 2020-03-26 11:04 | NUR ---
SS following up with discharge planning. SS reviewed pt chart and discussed with pt RN. Pt is currently on room air. Pt on full liquid diet. Possible discharge to home today if Dr. Juma peña. SS will continue to follow for discharge planning.
--- NOTE | 2020-03-26 12:24 | PDOC ---
SURGICAL PROGRESS NOTE DATE: 03/26/20 TIME: 12:23 Subjective tolerating diet loose stools no n/v mild upper abdominal pain--overall improved Vital Signs Vital Signs Date Time Temp Pulse Resp B/P (MAP) Pulse Ox O2 Delivery O2 Flow Rate FiO2 03/26/20 11:00 97.8 72 18 123/76 (92) 97 Room Air 97.8 I&O Intake and Output 03/26/20 07:00 Intake Total 4030 ml Output Total 100 ml Balance 3930 ml Intake Oral 1030 ml IV Total 3000 ml Gastric Drainage Total 100 ml # Voids 2 General: Alert, Oriented X3, Cooperative Abdomen: Soft, No tenderness, Other (ND) Labs Laboratory Tests Test 03/25/20 05:53 White Blood Count 6.6 x10^3/uL (4.0-11.0) Red Blood Count 4.15 x10^6/uL (3.50-5.40) Hemoglobin 12.7 g/dL (12.0-15.5) Hematocrit 37.1 % (36.0-47.0) Mean Corpuscular Volume 89 fL (79-100) Mean Corpuscular Hemoglobin 31 pg (25-35) Mean Corpuscular Hemoglobin Concent 34 g/dL (31-37) Red Cell Distribution Width 12.4 % (11.5-14.5) Platelet Count 293 x10^3/uL (140-400) Neutrophils (%) (Auto) 67 % (31-73) Lymphocytes (%) (Auto) 20 % (24-48) Monocytes (%) (Auto) 8 % (0-9) Eosinophils (%) (Auto) 5 % (0-3) Basophils (%) (Auto) 0 % (0-3) Neutrophils # (Auto) 4.5 x10^3/uL (1.8-7.7) Lymphocytes # (Auto) 1.3 x10^3/uL (1.0-4.8) Monocytes # (Auto) 0.5 x10^3/uL (0.0-1.1) Eosinophils # (Auto) 0.3 x10^3/uL (0.0-0.7) Basophils # (Auto) 0.0 x10^3/uL (0.0-0.2) Sodium Level 145 mmol/L (136-145) Potassium Level 4.0 mmol/L (3.5-5.1) Chloride Level 111 mmol/L (98-107) Carbon Dioxide Level 26 mmol/L (21-32) Anion Gap 8 (6-14) Blood Urea Nitrogen 14 mg/dL (7-20) Creatinine 0.5 mg/dL (0.6-1.0) Estimated GFR (Cockcroft-Gault) 129.6 Glucose Level 106 mg/dL (70-99) Calcium Level 8.4 mg/dL (8.5-10.1) Assessment/Plan improved ok to dc if can tolerate soft diet Justicifation of Admission Dx: Justifications for Admission: Justification of Admission Dx: Yes MARY ALICE SUMMERS CAREER AND GUIDANCE COUNSELOR Mar 26, 2020 12:24
[2020-03-26 14:55] VITALS: BP 122/78
[2020-03-26 19:45] VITALS: BP 142/73
[2020-03-26 23:40] VITALS: BP 106/57
[2020-03-27 03:40] VITALS: BP 108/69
[2020-03-27 07:00] VITALS: BP 138/74
[2020-03-27] MEDS: PANTOPRAZOLE IV PUSH 40 MG VIAL. IVP SCH (08:08)
--- NOTE | 2020-03-27 10:48 | PDOC ---
PROGRESS NOTES Date of Service: DATE: 03/27/20 TIME: 10:45 Subjective Subjective doing well want to go home Objective Objective Vital Signs Date Time Temp Pulse Resp B/P (MAP) Pulse Ox O2 Delivery O2 Flow Rate FiO2 03/27/20 07:00 97.7 73 18 138/74 (95) 97 Room Air 97.7 Intake and Output 03/27/20 07:00 Intake Total 1061 ml Output Total 0 ml Balance 1061 ml Intake Oral 550 ml Blood Product IV Normal Saline Flush 511 ml Output Stool Total 0 ml # Voids 3 # Bowel Movements 1 Physical Exam Abdomen: Soft, No tenderness, Other (ND) Heart: Regular rate Extremities: No clubbing, No cyanosis General: Alert, Oriented X3, Cooperative HEENT: Other (ng in place) Lungs: Clear to auscultation MUSCULOSKELETAL: No deformity, No swelling Neuro: Normal speech Psych/Mental Status: Mental status NL Skin: No rashes, No breakdown Assessment Assessment FINAL IMPRESSION: 1. Small-bowel obstruction. 2. Cyst in the liver. 3. Previous abdominal surgeries including gallbladder surgery, hysterectomy and left ovary removed. PLAN:D/C home today. advanced to Gi soft diet small bowel series shows improvement , partial small bowel obstruction Comment Review of Relevant I have reviewed the following items jacinta (where applicable) has been applied. Vitals/I & O Vital Sign - Last 24 Hours 03/26/20 03/26/20 03/26/20 03/26/20 11:00 14:55 19:45 20:00 Temp 97.8 97.8 97.9 97.8 97.8 97.9 Pulse 72 63 66 Resp 18 18 20 B/P (MAP) 123/76 (92) 122/78 (93) 142/73 (96) Pulse Ox 97 98 97 O2 Delivery Room Air Room Air Room Air Room Air 03/26/20 03/27/20 03/27/20 23:40 03:40 07:00 Temp 97.9 97.7 97.7 97.9 97.7 97.7 Pulse 77 76 73 Resp 20 20 18 B/P (MAP) 106/57 (73) 108/69 (82) 138/74 (95) Pulse Ox 98 98 97 O2 Delivery Room Air Room Air Room Air Intake and Output 03/26/20 03/26/20 03/27/20 15:00 23:00 07:00 Intake Total 300 ml 561 ml 200 ml Output Total 0 ml Balance 300 ml 561 ml 200 ml Justicifation of Admission Dx: Justifications for Admission: Justification of Admission Dx: Yes GIRMA MOLINA MD Mar 27, 2020 10:48
[2020-03-27 11:19] VITALS: BP 132/66
--- NOTE | 2020-03-27 12:21 | PDOC ---
SURGICAL PROGRESS NOTE DATE: 03/27/20 TIME: 12:20 Subjective Pt reports only able to eat half her meal and then had some pain. No n/V, passing flatus Vital Signs Vital Signs Date Time Temp Pulse Resp B/P (MAP) Pulse Ox O2 Delivery O2 Flow Rate FiO2 03/27/20 11:19 97.8 74 18 132/66 (88) 99 Room Air 97.8 I&O Intake and Output 03/27/20 07:00 Intake Total 1061 ml Output Total 0 ml Balance 1061 ml Intake Oral 550 ml Blood Product IV Normal Saline Flush 511 ml Output Stool Total 0 ml # Voids 3 # Bowel Movements 1 General: Alert, Oriented X3, Cooperative, No acute distress Abdomen: Soft, No tenderness Problem List SBO, appears resolved she would like to go home and try slow diet she is encouraged to f/u if she has any issues. Justicifation of Admission Dx: Justifications for Admission: Justification of Admission Dx: Yes LANIE COLE MD Mar 27, 2020 12:21
--- NOTE | 2020-03-27 13:19 | NUR ---
Discharge Note: ROSALVA BRYSON Discharge instructions and discharge home medications reviewed with Patient and a copy given. All questions have been answered and understanding verbalized. The following instructions and handouts were given: SBO, soft diet Discontinued lines and drains: IV catheter removed intact. Patient discharged to Home with self care via wheelchair.
--- NOTE | 2020-03-29 12:50 | PDOC ---
Provider Note Provider Note Discharge summary dictated.#[id number]. GIRMA MOLINA MD Mar 29, 2020 12:50
--- NOTE | 2020-03-29 12:59 | DS ---
DATE OF DISCHARGE: 03/27/2020 REASON FOR ADMISSION TO THE HOSPITAL: Partial small bowel obstruction. CONSULTATION: 1. Dr. Taveras. 2. Dr. Leija. PROCEDURES DONE: 1. CT of abdomen and pelvis. 2. Small bowel series. HOSPITAL COURSE: The patient is a 54-year-old female. The patient had a gallbladder surgery 2 years ago. She had a cyst removed from the left ovary when she was 20. She came with abdominal pain, nausea, vomiting. Had a CT scan shows a partial small bowel obstruction. The patient had a small bowel series, which shows transition point at the jejunum which resolved later on and the patient was started on NG tube suction and then started on clear liquid, advanced to soft diet, she was tolerating and she was discharged home. She was seen by GI also. FINAL IMPRESSION: 1. Abdominal pain secondary to partial small bowel obstruction, probably in the jejunum. 2. History of gallbladder surgery. 3. History of left ovarian surgery when she was 20. 4. History of Helicobacter pylori gastritis. DISPOSITION: Home. DISCHARGE MEDICATIONS: See MRAD for discharge medications. Follow with the GI. GIRMA MOLINA MD DR: SANJAY/mini JOB#: [id number] / [id number]
== END 2020-03-27 13:25 | disposition home or self-care (01) | DRG 390 ==
LOC: ER 22:51 → 2 NORTH 03-24 04:20
PROVIDERS: ADMIT Internal Medicine; ATTEND Internal Medicine
PROC: 0D9670Z Drainage of Stomach with Drainage Device, Via Natural or Artificial Opening (ICD-10-PCS; principal; 2020-03-24)
DX: K56.600 Partial intestinal obstruction, unspecified as to cause (principal); K21.9 Gastro-esophageal reflux disease without esophagitis; K76.89 Other specified diseases of liver; F41.9 Anxiety disorder, unspecified; K81.1 Chronic cholecystitis; B96.81 Helicobacter pylori [H. pylori] as the cause of diseases classified elsewhere; K29.70 Gastritis, unspecified, without bleeding; Z90.710 Acquired absence of both cervix and uterus; Z90.49 Acquired absence of other specified parts of digestive tract; Z88.8 Allergy status to other drugs, medicaments and biological substances; Z91.011 Allergy to milk products; Z90.721 Acquired absence of ovaries, unilateral
CPT/HCPCS: 36415; 74018; 74177; 74250; 80048; 80053; 81001; 83690; 84484; 85025; 93005; 96361; 96374; C9113; J2765; J3480; J7040; Q9967; 99285-25; G0378

== ENCOUNTER 2020-07-31 09:54 | Emergency (ER) | payer OTHER ==
[~2020-07-31] VITALS: Ht 162.6 cm; Wt 84.0 kg
[~2020-07-31 09:54] MED LIST changes: +OMEP40CA45 PO; +SUCR1ORA5 PO
[2020-07-31 10:00] VITALS: BP 155/89
[2020-07-31] MEDS ORDERED: AMOX1TAB61 PO (10:54)
--- NOTE | 2020-07-31 10:54 | ED.ADGEN ---
Past Medical History Past Medical History: No Pertinent History Past Surgical History: Cholecystectomy, Hysterectomy Additional Past Surgical Histo: OVARIAN TUMOR REMOVED Smoking Status: Never Smoker Alcohol Use: None Drug Use: None General Adult EDM: Chief Complaint: ANIMAL BITE HPI: HPI: Patient is previously healthy 55-year-old female presents to the emergency room complaining of scratches to her left forearm. She states that 2 days ago she was giving her cat a bath and she is unsure if her cat bit her scratched her. She did not initially noticed it but today she noticed that she had some redness around the wounds and is concerned that it is getting infected. She does not have any difficulty with moving her arm. She does not have pain anywhere else. She denies any other injuries. Tetanus is up-to-date. Review of Systems: Review of Systems: Complete ROS is negative unless otherwise documented in HPI Allergies: Allergies: Allergies Coded Allergies Type Severity Reaction Last Updated Verified Milk Containing Products Allergy Severe Swelling 11/15/17 Yes milk Allergy Severe Swelling 11/15/17 Yes acetaminophen Adverse Reaction Mild upset stomache 11/15/17 Yes ibuprofen Adverse Reaction Mild upset stomache 11/15/17 Yes Physical Exam: PE: General: Awake, alert, NAD. Well Nourished, well hydrated. Cooperative HEENT: Atraumatic, EOMI, PERRL, airway patent, moist oral mucosa Neck: Supple, trachea midline Respiratory: CTA bilaterally, normal effort, no wheezing/crackles CV: RRR, no murmur, cap refill <2 GI: Soft, nondistended, nontender, no masses MSK: No obvious deformities Skin: Warm, dry. Left forearm: Multiple small wounds to the inner forearm, 2 wounds have surrounding erythema and tenderness with warmth Neuro: A&O x3, speech NL, sensory and motor grossly intact, no focal deficits Psych: Normal affect, normal mood, not suicidal or homicidal Current Patient Data: Vital Signs: Vital Signs Date Time Temp Pulse Resp B/P (MAP) Pulse Ox O2 Delivery O2 Flow Rate FiO2 07/31/20 10:00 98.9 95 16 155/89 (111) 95 Room Air 98.9 EKG: EKG: [] Heart Score: Risk Factors: Risk Factors: DM, Current or recent (<one month) smoker, HTN, HLP, family history of CAD, obesity. Risk Scores: Score 0 - 3: 2.5% MACE over next 6 weeks - Discharge Home Score 4 - 6: 20.3% MACE over next 6 weeks - Admit for Clinical Observation Score 7 - 10: 72.7% MACE over next 6 weeks - Early Invasive Strategies Radiology/Procedures: Radiology/Procedures: [] Course & Med Decision Making: Course & Med Decision Making Pertinent Labs and Imaging studies reviewed. (See chart for details) Patient is a 55-year-old female who presents to the emergency room with cellulitis from a cat bite or scratch. She will be started on antibiotics. She is well-appearing. She does not have any motor or neuro deficits in her arm at this time. Tetanus up-to-date. Patient's test results and vitals while in the ED were fully reviewed and discussed with the patient. Patient is stable and at this time does not need admission to the hospital. We have discussed strict return precautions and the importance of following up with their Primary Care Carley staples. Patient stated understanding and was given an opportunity to ask any questions. Patient is in agreement with plan. Juanita Disclaimer: Juanita Disclaimer: This electronic medical record was generated, in whole or in part, using a voice recognition dictation system. Departure Departure Impression: Primary Impression: Cat bite Disposition: 01 DC HOME SELF CARE/HOMELESS Condition: STABLE Referrals: GIRMA MOLINA MD (PCP) Patient Instructions: Animal Bite Scripts Amoxicillin/Potassium Clav (AUGMENTIN 875-125 TABLET) 1 Each Tablet 1 TAB PO Q12HR, #20 TAB Prov: XIMENA BAHENA MD 07/31/20 XIMENA BAHENA MD Jul 31, 2020 10:54
== END 2020-07-31 11:05 | disposition home or self-care (01) ==
LOC: ER 09:54
DX: S50.12XA Contusion of left forearm, initial encounter (principal); Z90.49 Acquired absence of other specified parts of digestive tract; Z90.710 Acquired absence of both cervix and uterus; Z98.890 Other specified postprocedural states; W55.01XA Bitten by cat, initial encounter; Y93.89 Activity, other specified; Y92.89 Other specified places as the place of occurrence of the external cause; Y99.8 Other external cause status
CPT/HCPCS: 99283

== ENCOUNTER → 2020-09-17 | Outpatient (CLI) | payer OTHER ==
[~2020-09-17] MED LIST changes: +AMOX1TAB61 PO
[2020-09-17 07:25] LABS: BASO % 0 % (0-3); EOS # 0.2 x10^3/uL (0.0-0.7); EOS % 4 % (0-3); HEMATOCRIT 39.9 % (36.0-47.0); HEMOGLOBIN 13.7 g/dL (12.0-15.5); LYMPH # 1.1 x10^3/uL (1.0-4.8); LYMPH % 20 % (24-48); MEAN CORPUSCULAR HEMOGLOBIN 30 pg (25-35); MEAN CORPUSCULAR HGB CONC 35 g/dL (31-37); MEAN CORPUSCULAR VOLUME 86 fL (79-100); MONO # 0.4 x10^3/uL (0.0-1.1); MONO % 7 % (0-9); NEUT # 3.9 x10^3/uL (1.8-7.7); NEUT % 69 % (31-73); PLATELET COUNT 270 x10^3/uL (140-400); RED BLOOD COUNT 4.63 x10^6/uL (3.50-5.40); RED CELL DISTRIBUTION WIDTH 13.3 % (11.5-14.5); WHITE BLOOD COUNT 5.6 x10^3/uL (4.0-11.0)
[2020-09-17 07:26] LABS: BILIRUBIN,URINE NEGATIVE (NEG); CLARITY,URINE TURBID; COLOR,URINE YELLOW; NITRITE,URINE NEGATIVE (NEG); PROTEIN,URINE NEGATIVE (NEG-TRACE); UROBILINOGEN,URINE 0.2 mg/dL (0.2 mg/dL)
[2020-09-17 07:37] LABS: AMORPHOUS SEDIMENT,UR PRESENT /HPF
[2020-09-17 07:38] LABS: BACTERIA,URINE FEW /HPF (0-FEW); RBC,URINE 0 /HPF (0-2); WBC,URINE OCC /HPF (0-4)
[2020-09-17 07:48] LABS: ALBUMIN 3.5 g/dL (3.4-5.0); ALBUMIN/GLOBULIN RATIO 0.9 (1.0-1.7); CALCIUM 9.3 mg/dL (8.5-10.1); CREATININE 0.6 mg/dL (0.6-1.0); GFR 104.6; POTASSIUM 4.1 mmol/L (3.5-5.1); TOTAL BILIRUBIN 0.3 mg/dL (0.2-1.0); TOTAL PROTEIN 7.5 g/dL (6.4-8.2)
[2020-09-17 07:49] LABS: CHOLESTEROL/HDL RATIO 2.7
[2020-09-18 01:16] LABS: HEMOGLOBIN A1C 5.4 % (4.8-5.6)
== END ==
LOC: LAB 06:21
PROVIDERS: ATTEND Internal Medicine
DX: Z00.00 Encounter for general adult medical examination without abnormal findings (principal); E78.5 Hyperlipidemia, unspecified; R73.09 Other abnormal glucose; Z91.89 Other specified personal risk factors, not elsewhere classified
CPT/HCPCS: 36415; 80053; 80061; 81001; 83036; 84443; 85025

== ENCOUNTER → 2020-10-07 | Outpatient (CLI) | payer OTHER ==
[~2020-10-07] MED LIST changes: +IOHEXOL 240 MG/ML 50ML VIAL. PO ONE; +IOHEXOL 300 MG/ML 100ML VIAL. IV ONE
--- NOTE | 2020-10-07 13:31 | RAD ---
EXAM: CT Abdomen and Pelvis with IV contrast INDICATION: Reason: ABD PAIN / Spl. Instructions: / History: TECHNIQUE: Multi-detector row CT images were acquired from the lung bases through the abdomen and pel vis with the use of IV contrast. Sagittal and coronal images were acquired from the transaxial data. All CT scans performed at this facility utilize dose optimization techniques as appropriate to the ex am, including the following: Automated exposure control and adjustment of the mA and/or KV according to patient size (this includes techniques or standardized protocols for targeted exams where dose is indication/reason for exam). IV CONTRAST: Administered ORAL CONTRAST: Administered COMPARISON: Abdomen and pelvis CT with IV contrast of 03/24/2020 FINDINGS: LOWER CHEST: Unremarkable LIVER: Again shows multiple cysts, largest measuring 2.7 cm in the right hepatic lobe, segment 7. Th is is slightly increased from 2.0 cm approximately 7 months ago. BILIARY SYSTEM: Gallbladder is surgically absent. Bile ducts are not dilated. PANCREAS: Unremarkable SPLEEN: Unremarkable ADRENALS: Unremarkable KIDNEYS & URETERS: Unremarkable BLADDER: Unremarkable REPRODUCTIVE ORGANS: Hysterectomy GASTROINTESTINAL: The stomach, small bowel, and colon are unremarkable. The appendix is normal. MESENTERY/PERITONEUM/RETROPERITONEUM: Unremarkable VASCULAR: Unremarkable LYMPH NODES: No adenopathy OSSEOUS & SOFT TISSUES: Unremarkable IMPRESSION: No specific cause for abdominal pain is identified. Patient is status post cholecystectomy and hyster ectomy and has several hepatic cysts, some of which have increased in size in the interval, largest m easuring 2.7 cm in hepatic segment 7. Correlate clinically and consider ultrasound or CT follow-up. Electronically signed by: Cristhian Bonner MD (10/07/2020 1:28 PM) [id number]
== END ==
LOC: CT 08:11
PROVIDERS: ATTEND Surgery
DX: K76.89 Other specified diseases of liver (principal); Z90.49 Acquired absence of other specified parts of digestive tract
CPT/HCPCS: 74177; Q9966; Q9967

== ENCOUNTER → 2021-08-26 | Outpatient (CLI) | payer OTHER ==
[~2021-08-26] MED LIST changes: -IOHEXOL 240 MG/ML 50ML VIAL. PO ONE; -IOHEXOL 300 MG/ML 100ML VIAL. IV ONE; -OMEP40CA45 PO; +OMEP40CA7 PO
[2021-08-26 08:43] LABS: BASO % 1 % (0-3); EOS # 0.2 x10^3/uL (0.0-0.7); EOS % 4 % (0-3); HEMATOCRIT 43.8 % (36.0-47.0); HEMOGLOBIN 14.8 g/dL (12.0-15.5); LYMPH # 1.3 x10^3/uL (1.0-4.8); LYMPH % 24 % (24-48); MEAN CORPUSCULAR HEMOGLOBIN 30 pg (25-35); MEAN CORPUSCULAR HGB CONC 34 g/dL (31-37); MEAN CORPUSCULAR VOLUME 89 fL (79-100); MONO # 0.3 x10^3/uL (0.0-1.1); MONO % 5 % (0-9); NEUT # 3.7 x10^3/uL (1.8-7.7); NEUT % 66 % (31-73); PLATELET COUNT 243 x10^3/uL (140-400); RED BLOOD COUNT 4.92 x10^6/uL (3.50-5.40); RED CELL DISTRIBUTION WIDTH 12.8 % (11.5-14.5); WHITE BLOOD COUNT 5.5 x10^3/uL (4.0-11.0)
[2021-08-26 09:18] LABS: ALBUMIN 3.7 g/dL (3.4-5.0); ALBUMIN/GLOBULIN RATIO 0.9 (1.0-1.7); CALCIUM 8.7 mg/dL (8.5-10.1); CREATININE 0.5 mg/dL (0.6-1.0); GFR 128.6; TOTAL BILIRUBIN 0.4 mg/dL (0.2-1.0); TOTAL PROTEIN 7.9 g/dL (6.4-8.2)
[2021-08-26 09:20] LABS: CHOLESTEROL/HDL RATIO 2.4
[2021-08-26 10:02] LABS: BILIRUBIN,URINE NEGATIVE (NEG); CLARITY,URINE HAZY; COLOR,URINE YELLOW
[2021-08-26 10:03] LABS: AMORPHOUS SEDIMENT,UR PRESENT /HPF; BACTERIA,URINE 0 /HPF (0-FEW); NITRITE,URINE NEGATIVE (NEG); PH,URINE 7.5 (<5.0-8.0); PROTEIN,URINE NEGATIVE (NEG-TRACE); RBC,URINE 0 /HPF (0-2); UROBILINOGEN,URINE 0.2 mg/dL (0.2 mg/dL); WBC,URINE OCC /HPF (0-4)
[2021-08-26 21:11] LABS: IMMUNOGLOBULIN A 270 mg/dL (87-352)
[2021-08-27 01:12] LABS: HEMOGLOBIN A1C 5.5 % (4.8-5.6)
== END ==
LOC: LAB 06:59
PROVIDERS: ATTEND Internal Medicine
DX: Z00.00 Encounter for general adult medical examination without abnormal findings (principal); K90.0 Celiac disease
CPT/HCPCS: 36415; 80053; 80061; 81001; 82784; 83036; 84443; 85025; 86255; 87086